=== PATIENT | female | born 1950 | race Caucasian/White ===

== ENCOUNTER → 2017-10-03 10:46 | Outpatient (CLI) | payer OTHER, SELFPAY ==
[2017-10-03 12:06] LABS: Absolute Lymphocyte Count 1.27 X10^3/ul (0.83-4.51); Absolute Neutrophil Count 2.9 X10^3/uL (2.0-7.7); Basophil# 0.02 X10^3/uL; Basophil% 0.4 % (0-1); Eosinophils% 5.8 % (0-5); Hematocrit 42.6 % (37-47); Hemoglobin 14.6 g/dl (12.0-15.0); Lymphocyte # 1.27 X10^3/ul (4.0); Lymphocyte % 24.5 % (19-41); Mean Corp Hgb Conc 34.3 g/gl (32-36); Mean Corpuscular Hgb 30.6 pg (27.0-32.0); Mean Corpuscular Volume 89.3 fL (81-99); Monocyte# 0.65 X10^3/uL; Monocyte% 12.5 % (0-10); Neutrophil # 2.93 X10^3/uL (2.7-7.7); Neutrophil % 56.6 % (47-70); Platelet Count 208 K/mm3 (150-450); RBC Distribution Width CV 13.8 % (11.6-14.6); RBC Distribution Width SD 44.9 fl (35.1-43.9); Red Blood Count 4.77 M/mm3 (4.2-5.4); White Blood Count 5.2 K/mm3 (4.4-11.0)
[2017-10-03 12:08] LABS: POSITIVE COUNT NO; POSITIVE DIFFERENTIAL NO; POSITIVE MORPHOLOGY NO
[2017-10-03 12:34] LABS: Anion Gap 6 (5-15); BUN 17 mg/dL (7-18); BUN/Creat Ratio 17.7 RATIO (10-20); Calcium,Total 9.1 mg/dL (8.5-10.1); Chloride 109 mmol/L (98-107); Creatinine, Serum 0.96 mg/dL (0.55-1.02); EST Glomerular Filtration Rate 61 mL/min (>60); Est Glom Filt Rate - Afr Amer 74 mL/min (>60); Glucose 99 mg/dL (74-106); Potassium 3.7 mmol/L (3.5-5.1); Sodium Level 142 mmol/L (136-145)
== END ==
PROVIDERS: Family Provider Family Medicine; PCP Family Medicine; Visit Provider Family Medicine
DX: I10 Essential (primary) hypertension (principal); E66.01 Morbid (severe) obesity due to excess calories
CPT/HCPCS: 36415; 80048; 84443; 85025

== ENCOUNTER → 2017-11-30 11:42 | Outpatient (CLI) | payer OTHER, SELFPAY ==
--- NOTE | 2017-11-30 11:44 | BI_ITS ---
MAMMOGRAPHY - BILATERAL SCREENING REASON FOR EXAM: Female, 67 years old. Routine annual screening examination. PERTINENT HISTORY: Non-contributory. TECHNIQUE: Digital bilateral breast hosea (3D mammographic acquisition) in the CC and MLO projections. 2-D mediolateral oblique (MLO) and craniocaudad (CC) views of both breasts were obtained. CAD: Full Field Digital Mammography with Computer Added Detection was performed. COMPARISON: Comparison is made with prior study dated November 25, 2016 and November 24, 2015. FINDINGS: Breast Composition: The breasts are almost entirely fatty. There are no dominant masses or suspicious calcifications. No other significant abnormalities are identified. There has been no significant change since the prior study. BI/SCREENING MAMM (CAD), BILAT IMPRESSION: Stable bilateral screening mammogram. Yearly follow-up mammogram recommended. (A) ASSESSMENT CATEGORY: BIRADS Category 1: Negative. A letter regarding these results will be sent to the patient by the facility within 30 days. Approximately 10% of breast cancers are not detected by mammography. A normal mammogram should not delay biopsy of a clinically suspicious abnormality. [id number] Electronically Signed: Bobby Thakkar MD at 14:38 EDT Tel [phone], Service support ,
== END ==
PROVIDERS: Family Provider Family Medicine; PCP Family Medicine; Visit Provider Family Medicine
DX: Z12.31 Encounter for screening mammogram for malignant neoplasm of breast (principal)
CPT/HCPCS: 77063; 77067

== ENCOUNTER → 2018-10-19 13:22 | Outpatient (CLI) | payer OTHER, SELFPAY | PROVIDERS: Family Provider Family Medicine; PCP Family Medicine; Visit Provider Family Medicine | DX: N39.0 Urinary tract infection, site not specified (principal) | CPT/HCPCS: 87086; 87088 ==

== ENCOUNTER → 2018-12-03 12:33 | Outpatient (CLI) | payer MEDICARE, SELFPAY ==
--- NOTE | 2018-12-03 12:35 | BI_ITS ---
MAMMOGRAPHY - BILATERAL SCREENING REASON FOR EXAM: Female, 68 years old. Routine annual screening examination. PERTINENT HISTORY: Non-contributory. TECHNIQUE: Digital bilateral breast justen (3D mammographic acquisition) in the CC and MLO projections. 2-D mediolateral oblique (MLO) and craniocaudad (CC) views of both breasts were obtained. CAD: Full Field Digital Mammography with Computer Added Detection was performed. COMPARISON: Comparison is made with prior study dated November 30, 2017 and November 25, 2016. FINDINGS: Breast Composition: The breasts are almost entirely fatty. There are no dominant masses or suspicious calcifications. No other significant abnormalities are identified. There has been no significant change since the prior study. BI/SCREEN MAMM (CAD) W/JUSTEN BILAT IMPRESSION: Stable bilateral screening mammogram. Yearly follow-up mammogram recommended. (A) ASSESSMENT CATEGORY: BIRADS Category 1: Negative. A letter regarding these results will be sent to the patient by the facility within 30 days. Approximately 10% of breast cancers are not detected by mammography. A normal mammogram should not delay biopsy of a clinically suspicious abnormality. [id number] Electronically Signed: Bobby Thakkar, at 14:32 EDT , Service support ,
== END ==
PROVIDERS: Family Provider Family Medicine; PCP Family Medicine; Referring Provider Family Medicine; Visit Provider Family Medicine
DX: Z12.31 Encounter for screening mammogram for malignant neoplasm of breast (principal)
CPT/HCPCS: 77063; 77067

== ENCOUNTER → 2019-08-27 10:12 | Outpatient (CLI) | payer MEDICARE, SELFPAY ==
[2019-08-27 12:20] LABS: Absolute Lymphocyte Count 1.15 X10^3/uL (0.83-4.51); Absolute Neutrophil Count 3.4 X10^3/uL (2.0-7.7); Basophil# 0.03 X10^3/uL; Basophil% 0.6 % (0-1); Eosinophil# 0.15 X10^3/uL; Eosinophils% 2.8 % (0-5); Hematocrit 43.6 % (37-47); Hemoglobin 14.2 g/dL (12.0-15.0); Lymphocyte # 1.15 X10^3/ul (4.0); Lymphocyte % 21.2 % (19-41); Mean Corp Hgb Conc 32.6 g/dL (32-36); Mean Corpuscular Hgb 29.5 pg (27.0-32.0); Mean Corpuscular Volume 90.5 fL (81-99); Mean Platelet Vol. 12.2 fl (6.2-12.0); Monocyte# 0.67 X10^3/uL; Monocyte% 12.4 % (0-10); NRBC Flagged by Analyzer 0 % (0-5); Neutrophil % 62.6 % (47-70); Platelet Count 266 K/mm3 (150-450); RBC Distribution Width CV 13.4 % (11.6-14.6); RBC Distribution Width SD 44.3 fl (35.1-43.9); Red Blood Count 4.82 M/mm3 (4.2-5.4); White Blood Count 5.4 K/mm3 (4.4-11.0)
[2019-08-27 12:46] LABS: Hemoglobin A1c 5.3 % (3.8-5.6)
[2019-08-27 12:59] LABS: Anion Gap 7 (5-15); BUN 19 mg/dL (7-18); BUN/Creat Ratio 20.8 RATIO (10-20); Calcium,Total 9.3 mg/dL (8.5-10.1); Chloride 107 mmol/L (98-107); Cholesterol 188 mg/dL (200); Creatinine, Serum 0.92 mg/dL (0.55-1.02); EST Glomerular Filtration Rate 64 mL/min (>60); Est Glom Filt Rate - Afr Amer 78 mL/min (>60); Glucose 100 mg/dL (74-106); High Density Lipoprotein 48 mg/dL; Potassium 3.7 mmol/L (3.5-5.1); Sodium Level 142 mmol/L (136-145); Triglycerides 102 mg/dL; Very Low Density Lipoprotein 20 mg/dL (5-40)
== END ==
PROVIDERS: PCP Family Medicine; Visit Provider Family Medicine
DX: E11.9 Type 2 diabetes mellitus without complications (principal); I10 Essential (primary) hypertension
CPT/HCPCS: 36415; 80048; 80061; 83036; 85025

== ENCOUNTER → 2019-12-05 10:40 | Outpatient (CLI) | payer MEDICARE, SELFPAY ==
--- NOTE | 2019-12-05 10:42 | BI_ITS ---
MAMMOGRAPHY - BILATERAL SCREENING REASON FOR EXAM: Female, 69 years old. Routine annual screening examination. PERTINENT HISTORY: Non-contributory. TECHNIQUE: Digital bilateral breast justen (3D mammographic acquisition) in the CC and MLO projections. 2-D mediolateral oblique (MLO) and craniocaudad (CC) views of both breasts were obtained. CAD: Full Field Digital Mammography with Computer Added Detection was performed. COMPARISON: Comparison is made with prior study 12/03/2018 and 11/30/2017. FINDINGS: Breast Composition: The breasts are almost entirely fatty. There are no dominant masses or suspicious calcifications. No other significant abnormalities are identified. There has been no significant change since the prior study. BI/SCREEN MAMM (CAD) W/JUSTEN BILAT IMPRESSION: Stable bilateral screening mammogram. Yearly follow-up mammogram recommended. (A) ASSESSMENT CATEGORY: BIRADS Category 1: Negative. A letter regarding these results will be sent to the patient by the facility within 30 days. Approximately 10% of breast cancers are not detected by mammography. A normal mammogram should not delay biopsy of a clinically suspicious abnormality. [id number] Electronically Signed: Bobby hTakkar, at 12:34 EDT , Service support ,
== END ==
PROVIDERS: PCP Family Medicine; Referring Provider Family Medicine; Visit Provider Family Medicine
DX: Z12.31 Encounter for screening mammogram for malignant neoplasm of breast (principal)
CPT/HCPCS: 77063; 77067

== ENCOUNTER → 2020-02-03 17:52 | Outpatient (CLI) | payer MEDICARE, SELFPAY | PROVIDERS: PCP Family Medicine; Referring Provider Family Medicine; Visit Provider Family Medicine | DX: Z03.818 Encounter for observation for suspected exposure to other biological agents ruled out (principal) | CPT/HCPCS: 87635; C9803; U0003 ==

== ENCOUNTER → 2020-03-16 14:45 | Outpatient (CLI) | payer MEDICARE, SELFPAY ==
[2020-03-16 17:33] LABS: Absolute Neutrophil Count 4.2 X10^3/uL (2.0-7.7); Basophil# 0.03 X10^3/uL; Basophil% 0.5 % (0-1); Eosinophil# 0.13 X10^3/uL; Eosinophils% 2.2 % (0-5); Hematocrit 40.6 % (37-47); Hemoglobin 13.6 g/dL (12.0-15.0); Lymphocyte % 15.2 % (19-41); Mean Corp Hgb Conc 33.5 g/dL (32-36); Mean Corpuscular Hgb 30.7 pg (27.0-32.0); Mean Corpuscular Volume 91.6 fL (81-99); Mean Platelet Vol. 11.9 fl (6.2-12.0); Monocyte# 0.69 X10^3/uL; Monocyte% 11.7 % (0-10); NRBC Flagged by Analyzer 0 % (0-5); Neutrophil # 4.15 X10^3/uL (2.7-7.7); Neutrophil % 70.2 % (47-70); Platelet Count 229 K/mm3 (150-450); RBC Distribution Width CV 14.3 % (11.6-14.6); RBC Distribution Width SD 46.5 fl (35.1-43.9); Red Blood Count 4.43 M/mm3 (4.2-5.4); White Blood Count 5.9 K/mm3 (4.4-11.0)
[2020-03-16 17:50] LABS: AST(SGOT) 22 U/L (15-37); Alanine Aminotransfer ALT/SGPT 39 U/L (13-56); Albumin, Serum 3.7 g/dL (3.2-5.0); Alkaline Phosphatase 103 U/L (45-117); Bilirubin, Direct 0.14 mg/dL (0.00-0.30); Lipase 49 U/L (73-393); Protein, Total 7.7 g/dL (6.4-8.2); Thyroid Stim Hormone (TSH) 2.91 uIU/mL (0.358-3.74)
[2020-03-18 16:08] LABS: Endomysial Antibody IgA Negative (Negative)
[2020-03-18 21:04] LABS: Immunoglobulin A 216 mg/dL (64-422); t-Transglutaminase IgA <2 U/mL (0-3)
== END ==
PROVIDERS: PCP Family Medicine; Visit Provider Family Medicine
DX: K52.9 Noninfective gastroenteritis and colitis, unspecified (principal); R63.4 Abnormal weight loss; R11.0 Nausea; R10.9 Unspecified abdominal pain
CPT/HCPCS: 36415; 80076; 82784; 83516; 83690; 84443; 85025; 86255

== ENCOUNTER → 2020-03-18 10:48 | Outpatient (CLI) | payer MEDICARE, SELFPAY ==
[2020-03-19 14:59] LABS: Giardia Lamblia, Stool EIA Negative (Negative)
== END ==
PROVIDERS: PCP Family Medicine; Visit Provider Family Medicine
DX: K52.9 Noninfective gastroenteritis and colitis, unspecified (principal); R63.4 Abnormal weight loss; R11.0 Nausea; R10.9 Unspecified abdominal pain; R19.7 Diarrhea, unspecified
CPT/HCPCS: 83630; 87329; 87493; 87506

== ENCOUNTER → 2020-06-23 13:51 | Outpatient (CLI) | payer MEDICARE, SELFPAY ==
[2020-06-23 14:17] LABS: Absolute Lymphocyte Count 1.01 X10^3/uL (0.83-4.51); Absolute Neutrophil Count 5.1 X10^3/uL (2.0-7.7); Basophil# 0.03 X10^3/uL; Basophil% 0.4 % (0-1); Eosinophil# 0.09 X10^3/uL; Eosinophils% 1.3 % (0-5); Hematocrit 42.8 % (37-47); Hemoglobin 13.5 g/dL (12.0-15.0); Lymphocyte # 1.01 X10^3/ul (4.0); Lymphocyte % 14.2 % (19-41); Mean Corp Hgb Conc 31.5 g/dL (32-36); Mean Corpuscular Hgb 28.3 pg (27.0-32.0); Mean Corpuscular Volume 89.7 fL (81-99); Mean Platelet Vol. 11.2 fl (6.2-12.0); Monocyte# 0.89 X10^3/uL; Monocyte% 12.5 % (0-10); NRBC Flagged by Analyzer 0 % (0-5); Neutrophil # 5.06 X10^3/uL (2.7-7.7); Neutrophil % 71.2 % (47-70); Platelet Count 327 K/mm3 (150-450); RBC Distribution Width CV 14.6 % (11.6-14.6); RBC Distribution Width SD 47.1 fl (35.1-43.9); Red Blood Count 4.77 M/mm3 (4.2-5.4); White Blood Count 7.1 K/mm3 (4.4-11.0)
[2020-06-23 14:54] LABS: ALB/GLOB Ratio 0.7 RATIO (0.9-2.4); AST(SGOT) 23 U/L (15-37); Alanine Aminotransfer ALT/SGPT 26 U/L (13-56); Albumin, Serum 3.1 g/dL (3.2-5.0); Alkaline Phosphatase 115 U/L (45-117); Anion Gap 5 (5-15); BUN 9 mg/dL (7-18); BUN/Creat Ratio 11.2 RATIO (10-20); Calcium,Total 9.1 mg/dL (8.5-10.1); Chloride 104 mmol/L (98-107); EST Glomerular Filtration Rate 75 mL/min (>60); Est Glom Filt Rate - Afr Amer 90 mL/min (>60); Ferritin 249 ng/mL (8-252); Globulin 4.3 g/dL (2.2-4.2); Glucose 115 mg/dL (74-106); Iron 36 ug/dL (50-170); Potassium 3.3 mmol/L (3.5-5.1); Protein, Total 7.4 g/dL (6.4-8.2); Sodium Level 139 mmol/L (136-145); Thyroid Stim Hormone (TSH) 2.78 uIU/mL (0.358-3.74)
== END ==
PROVIDERS: PCP Family Medicine; Visit Provider Family Medicine
DX: I10 Essential (primary) hypertension (principal); D64.9 Anemia, unspecified; K92.2 Gastrointestinal hemorrhage, unspecified
CPT/HCPCS: 36415; 80053; 82728; 83540; 84443; 85025

== ENCOUNTER → 2020-07-06 10:00 | Outpatient (CLI) | payer MEDICARE, SELFPAY ==
[2020-07-06 12:12] LABS: Anion Gap 8 (5-15); BUN 10 mg/dL (7-18); BUN/Creat Ratio 13.3 RATIO (10-20); Calcium,Total 9.3 mg/dL (8.5-10.1); Chloride 100 mmol/L (98-107); Creatinine, Serum 0.75 mg/dL (0.55-1.02); EST Glomerular Filtration Rate 80 mL/min (>60); Est Glom Filt Rate - Afr Amer 97 mL/min (>60); Glucose 115 mg/dL (74-106); Potassium 3.6 mmol/L (3.5-5.1); Sodium Level 137 mmol/L (136-145)
== END ==
PROVIDERS: PCP Family Medicine; Referring Provider Family Medicine; Visit Provider Family Medicine
DX: I10 Essential (primary) hypertension (principal)
CPT/HCPCS: 36415; 80048

== ENCOUNTER → 2020-08-06 10:39 | Outpatient (CLI) | payer MEDICARE, SELFPAY ==
[2020-08-06 11:08] LABS: Absolute Lymphocyte Count 0.56 X10^3/uL (0.83-4.51); Absolute Neutrophil Count 5.4 X10^3/uL (2.0-7.7); Basophil# 0.02 X10^3/uL; Basophil% 0.3 % (0-1); Eosinophil# 0.02 X10^3/uL; Eosinophils% 0.3 % (0-5); Hematocrit 37.1 % (37-47); Hemoglobin 11.8 g/dL (12.0-15.0); Lymphocyte # 0.56 X10^3/ul (0.83-4.51); Lymphocyte % 8.3 % (19-41); Mean Corp Hgb Conc 31.8 g/dL (32-36); Mean Corpuscular Hgb 27.8 pg (27.0-32.0); Mean Corpuscular Volume 87.3 fL (81-99); Mean Platelet Vol. 9.7 fl (6.2-12.0); Monocyte# 0.69 X10^3/uL; Monocyte% 10.3 % (0-10); NRBC Flagged by Analyzer 0 % (0-5); Neutrophil % 80.4 % (47-70); POSITIVE DIFFERENTIAL YES; Platelet Count 332 K/mm3 (150-450); RBC Distribution Width CV 14.7 % (11.6-14.6); RBC Distribution Width SD 46.6 fl (35.1-43.9); Red Blood Count 4.25 M/mm3 (4.2-5.4); White Blood Count 6.7 K/mm3 (4.4-11.0)
[2020-08-06 11:19] LABS: Differential Indicated SCAN CRITERIA MET
[2020-08-06 11:34] LABS: BNP,B-Type NATRIURETIC PEPTIDE 144.5 pg/mL (0-100)
[2020-08-06 11:50] LABS: ALB/GLOB Ratio 0.5 RATIO (0.9-2.4); AST(SGOT) 31 U/L (15-37); Alanine Aminotransfer ALT/SGPT 27 U/L (13-56); Albumin, Serum 2.4 g/dL (3.2-5.0); Alkaline Phosphatase 127 U/L (45-117); Anion Gap 7 (5-15); BUN 12 mg/dL (7-18); BUN/Creat Ratio 16.3 RATIO (10-20); Calcium,Total 8.5 mg/dL (8.5-10.1); Chloride 104 mmol/L (98-107); Creatinine, Serum 0.73 mg/dL (0.55-1.02); EST Glomerular Filtration Rate 83 mL/min (>60); Est Glom Filt Rate - Afr Amer 100 mL/min (>60); Globulin 4.4 g/dL (2.2-4.2); Glucose 113 mg/dL (74-106); Lipase 57 U/L (73-393); Potassium 3.3 mmol/L (3.5-5.1); Protein, Total 6.8 g/dL (6.4-8.2); Sodium Level 138 mmol/L (136-145); Thyroid Stim Hormone (TSH) 2.73 uIU/mL (0.358-3.74)
[2020-08-07 12:05] LABS: T4 Free Direct 1.35 ng/dL (0.76-1.46)
== END ==
PROVIDERS: PCP Family Medicine; Referring Provider Family Medicine; Visit Provider Family Medicine
DX: I10 Essential (primary) hypertension (principal); E11.9 Type 2 diabetes mellitus without complications; R60.9 Edema, unspecified; D64.9 Anemia, unspecified; R11.0 Nausea
CPT/HCPCS: 36415; 80053; 83690; 83880; 84439; 84443; 85025

== ENCOUNTER → 2020-08-20 09:24 | Outpatient (CLI) | payer MEDICARE, SELFPAY ==
--- NOTE | 2020-08-20 09:28 | US_ITS ---
STUDY: ABDOMINAL ULTRASOUND REASON FOR EXAM: Female, 70 years old. NAUSEA,ELEVATED LFTS,UNINTENDED WEIGHT LOSS,FH PANCREATIC CA TECHNIQUE: Transabdominal ultrasound was performed with real-time and static toscano scale imaging. TECHNICAL QUALITY: Limited. COMPARISON: Comparison is made with prior study dated 02/25/2014. FINDINGS: Liver: The liver measures 12 cm. There is a heterogeneous echogenicity of the liver. Irregular contour of the liver suggestive of cirrhosis. The bile ducts are within normal limits. There is hepatic color flow. The direction of portal flow is hepatopetal. There is no demonstrated mass lesion. Gallbladder: The patient is status post cholecystectomy. Common Bile Duct (C.B.D.): The common bile duct measures 5.1 mm. Pancreas: There is nonvisualization of the pancreas due to overlying bowel gas. Spleen: Normal size of the spleen. The spleen measures 12.2 cm x 5.87 x 4.8 cm. Right Kidney: Normal size of the right kidney. The right kidney measures 10.1 cm x 5.3 cm x 3.7 cm. Normal renal cortex. The right cortex measures 1.1 cm. There is no demonstrated renal mass or cyst. There is no right hydronephrosis. Left Kidney: Normal size of the left kidney. The left kidney measures 10.5 cm x 3.9 cm x 4.1 cm. Normal renal cortex. The left cortex measures 1.2 cm. There is no demonstrated renal mass or cyst. There is no left hydronephrosis. Aorta: Unremarkable I.V.C.: The IVC is patent. Small amount of free fluid is seen in the right and left upper quadrants. Incidental note is made of small bilateral pleural effusions. US/Abdomen Complete IMPRESSION: Heterogeneous appearance of the liver with nodular contour suggestive of cirrhotic change. Small amount of ascites seen in the right and left upper quadrants as well as small bilateral pleural effusions. Electronically Signed: Bobby Thakkar MD at 15:10 EDT , Service support ,
== END ==
PROVIDERS: PCP Family Medicine; Referring Provider Family Medicine; Visit Provider Family Medicine
DX: R11.0 Nausea (principal); R63.4 Abnormal weight loss; D64.9 Anemia, unspecified
CPT/HCPCS: 76700

== ENCOUNTER 2020-08-26 08:38 | Emergency (ER) | payer MEDICARE, SELFPAY ==
[2020-08-26 08:38] VITALS: BP 167/101; PULSE 118; RESP 18; TEMP 36.2; O2SAT 93; BMI 31.8
--- NOTE | 2020-08-26 09:02 | RAD_ITS ---
STUDY: X-RAY - LEFT TIBIA AND FIBULA REASON FOR EXAM: Female, 70 years old. Pain following a fall. TECHNIQUE: 2 view(s) of the tibia and fibula were obtained. COMPARISON: None. FINDINGS: Normal visualized tibia. Normal visualized fibula. The soft tissue structures are unremarkable. RAD/Tibia & Fibula 2 Views IMPRESSION: Normal x-ray examination of the tibia and fibula. Electronically Signed: Bobby Thakkar MD at 9:24 EDT , Service support ,
--- NOTE | 2020-08-26 09:02 | RAD_ITS ---
STUDY: X-RAY - LEFT KNEE REASON FOR EXAM: Female, 70 years old. Fall TECHNIQUE: 2 view(s) of the knee. COMPARISON: None. FINDINGS: Normal visualized distal femur. Normal visualized proximal tibia and fibula. Normal proximal tibiofibular articulation. There is mild degenerative arthrosis of the medial femorotibial compartment. There is severe degenerative arthrosis of the lateral femorotibial compartment with severe joint space narrowing. There is severe degenerative arthrosis of the patellofemoral articulation. Periarticular soft tissue ossification. 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 RAD/Knee 1 or 2 Views IMPRESSION: Degenerative arthrosis. No fracture is seen. Findings suggestive of synovial osteochondromatosis. Electronically Signed: Bobby Thakkar MD at 9:25 EDT , Service support ,
--- NOTE | 2020-08-26 09:03 | EDS_ITS ---
HPI HPI - Fall History of Present Illness Chief Complaint: Fall Informant: patient Occured/Mechanism Occurred: Today Pain/Injury Pain Location: lower extremity Quality of Pain: Sharp Current Severity: Mild Maximum Severity: Mild Narrative Narrative: 70-year-old female lives alone in a trailer. Past medical history of arthritis. No recent illness or hospitalization. Patient states that she was getting out of bed this morning she uses a walker basically got tangled up in her walker fell twisting and injuring her left knee and lower leg. She denies any LOC. Said she called for help but did not get any event she got to her phone and her neighbor came her helped her. She said she sat there for about an hour to 2 hours. She denies any other injuries or recent illnesses. Prior similar symptoms: No Recent Illness/Hospitalization: No PFSH PFSH Medical History Arthritis Hypertension Home Medications atenolol 25 mg PO DAILY 02/25/14 [History Last Taken 03/04/14 07:45] meloxicam 15 mg PO DAILY 08/26/20 [History Last Taken Unknown] Allergy/AdvReac Type Severity Reaction Status Date / Time No Known Allergies Allergy Verified 08/26/20 08:41 Surgical History History of cholecystectomy Social History Smoking Status: Never smoker ROS ROS ED ROS Narrative Patient denies any recent illness nor any recent hospitalization. Review of Systems ROS Unobtainable: Denies due to encephalopathy Constitutional Constitutional ED: Denies chills or fever(s) Eyes Eyes: Denies change in vision ENT ENT ED: Denies ear pain or sore throat Cardiovascular Cardiovascular: Denies chest pain Respiratory/Chest Respiratory/Chest: Denies cough or dyspnea Gastrointestinal Gastrointestinal: Denies abdominal pain, diarrhea, nausea or vomiting Genitourinary Genitourinary ED: Denies dysuria or hematuria Musculoskeletal Musculoskeletal: Denies myalgias Integumentary Denies rash Neurologic Neurologic: Denies headache(s) Psychiatric Psychiatric: Denies depression Endocrine Endocrinology: Denies polyuria Hematologic/Lymphatic Hematologic/Lymphatic: Denies easy bruising Allergic/Immunologic Allergic/Immunologic ED: Denies urticaria EXAM Physical Exam Narrative Exam Narrative: Older female no acute distress. Vital signs stable and afebrile. Does not look septic or toxic. Lungs are clear. Heart regular rhyth m. Abdomen soft nontender. Her left knee and left lower leg she has tenderness to the knee and abrasion to the left lower calf. There is no gross bony deformity. There is mild swelling of the knee. She is able to do flexion extension of both hips knees ankles and feet. Neurologically she is awake and alert. Const Vital Signs: 08/26/20 08:38 Temperature 97.2 F L Temperature Source Temporal Pulse Rate 118 H Respiratory Rate 18 Blood Pressure 167/101 H Blood Pressure Mean 123 Pulse Ox 93 Oxygen Delivery Method Room Air HEENT Reports normocephalic atraumatic; Negative for trauma or tenderness Eyes PERRL and EOMs intact bilaterally Neck full ROM, no lymphadenopathy and supple General: Negative for tenderness Chest Wall inspection of chest normal and palpation of chest normal Resp normal respiratory effort, no retractions and clear to auscultation bilaterally Auscultation: Negative for rales, rhonchi or wheezes Cardio regular rate, regular rhythm and no murmurs Rate: Negative for bradycardia or tachycardic GI non-tender, non-distended and no masses Inspection: Negative for abdominal distention Auscultation: normoactive bowel sounds Palpation: soft; Negative for guarding or rebound tenderness present Back/Spine no CVA tenderness Cervical Spine: Negative for cervical spine tenderness Thoracic Spine / Upper Back: Negative for thoracic spinal tenderness Lumbar Spine / Lower Back: Negative for paraspinal muscle tenderness Extremity normal to inspection and full ROM Extremity Narrative: Mild tenderness to her left knee mild swelling. Flexion extension intact. Abrasion to the left calf. No gross bony deformities. Both lower extremities are neurovascular intact. Upper extremities are nontender with normal range of motion. Neuro oriented x3, CN's II-XII intact bilaterally, moves all extremities and no focal motor deficits Sensorium / Orientation: alert, oriented to person, oriented to place and oriented to time; Negative for confused, lethargic or stuporous Psych mental status grossly normal Skin Lesions: no lesions Rashes: no rashes MDM MDM MDM Narrative Medical decision making narrative: Older female today had trouble getting out of bed and fell injuring her left knee and lower leg. X-rays are being obtained. Currently she did not want anything for pain. We will also test her ambulation. Repeat exam the patient is doing well at 9:27 AM. She and I went over her x- rays. Nurses agreed to try to ambulate her with a walker she does well she will be discharged to home. She also wants to talk to a geriatric social work professor about some home health care. Radiography Diagnostic Testing: X-ray of the left tib-fib shows no acute abnormality. Chronic degenerative changes left knee. No fracture or dislocation is noted. 2 views read by myself. Left knee x-ray multiple views shows chronic degenerative arthritis. Decreased joint space narrowing of the knee. But no acute fracture or dislocation. Significant arthritis. Interpreted by myself. Discharge Plan Triage Chief Complaint: Fall ED Provider: Johnnei Thayer Dx/Rx/DC Orders Clinical Impression: Fall, Left knee sprain, Osteoarthritis, Abrasion of anterior left lower leg Instructions: ED Knee Sprain, ED Osteoarthritis Prescriptions: No Action atenolol 25 MG tablet 25 mg PO DAILY RF: 0 meloxicam 15 mg Tablet 15 mg PO DAILY RF: 0 Primary Care Provider: Tiago Alonzo Referrals: Tiago Alonzo MD [Primary Care Provider] - 3-5 Days if not improving Activity Restrictions/Additional Instructions: Ice and elevate your left knee to decrease pain and swelling. Usual arthritis pain medication at home as needed. Follow-up with your doctor if not improving. Consider discussing with your doctor and orthopedic surgeon a left knee replacement. Disposition Disposition: Home, self care
--- NOTE | 2020-08-26 10:40 | CM.ED ---
SOCIAL WORK Referral Source: Dr. Thayer Reason for Consult: Resources Met with patient and patient's neighbor/friend Naomy Escobar ([phone]) in room. Introduced role and reason for referral. Patient from home alone and presents to ER after a fall. Patient reports laid on the floor for 2 hours before she was able to get help. Patient lives in a mobile home with ramp to enter. Patient utilizes a walker for assistance with ambulation. Patient and friend report over the last few months patient has been declining. Patient states has been in contact with her insurance and is provided something like companionship 1x week. Patient believes she would benefit from additional services. Discussed with Dr. Thayer who is recommending home health. Reviewed list of providers with patient and friend. Patient requesting referral to [facility] as first choice and [facility] as second choice. Call to [facility], left message for Leda with intake. Awaiting call back at this time. Plan: Home with referral for home health Susana Benítez, MACHINE OPERATIONS SUPERVISOR, VEGETABLE TIER
[2020-08-26 10:56] VITALS: BP 151/98; PULSE 120; RESP 16; O2SAT 99
--- NOTE | 2020-08-26 12:35 | CM.ED ---
SOCIAL WORK Received call from Leda with [facility] Home [facility]. Leda reports able to accept patient for home health services. Susana Benítez, FLIGHT TECHNICIAN, RDA
== END 2020-08-26 10:57 | disposition home or self-care (01) ==
LOC: ED 09:32
PROVIDERS: Emergency Provider Emergency Medicine; PCP Family Medicine
DX: S83.92XA Sprain of unspecified site of left knee, initial encounter (principal); S80.812A Abrasion, left lower leg, initial encounter; W06.XXXA Fall from bed, initial encounter; Y93.9 Activity, unspecified; Y92.003 Bedroom of unspecified non-institutional (private) residence as the place of occurrence of the external cause; Y99.9 Unspecified external cause status; I10 Essential (primary) hypertension; M17.12 Unilateral primary osteoarthritis, left knee; Z79.1 Long term (current) use of non-steroidal anti-inflammatories (NSAID)
CPT/HCPCS: 73560; 73590; 99284

== ENCOUNTER 2020-08-29 10:42 | Inpatient (IN) | payer MEDICARE, SELFPAY ==
[2020-08-29] VITALS (12 sets, daily range): BP systolic 121–147; BP diastolic 81–98; PULSE 91–110; RESP 14–24; TEMP 36.4–37; O2SAT 89–98; BMI 25.7; BMI 30.6
--- NOTE | 2020-08-29 10:48 | RAD_ITS ---
HISTORY: chest pain. TECHNIQUE: XR Chest 1 View. # of images incl. paperwork: 1. COMPARISON: None. FINDINGS: CARDIOMEDIASTINAL STRUCTURES: Cardiac silhouette and mediastinal contour obscured. LUNGS: Opacities in the left mid to lower lung. PLEURA: Moderate left pleural effusion. OSSEOUS STRUCTURES: Calcific tendinitis of the right shoulder. RAD/Chest 1 View (Portable) IMPRESSION: Moderate left pleural effusion with atelectasis or consolidation in the left lung base. Recommend follow-up to resolution. at 1153 Reported and signed by: Bhavani Rod MD Electronically Signed: Bhavani Rod MD at 11:52 EDT Tel , Service support ,
--- NOTE | 2020-08-29 10:48 | EKG12_ITS ---
Test Reason : PALPS Blood Pressure : / mmHG Vent. Rate : 108 BPM Atrial Rate : 108 BPM P-R Int : 130 ms QRS Dur : 086 ms QT Int : 340 ms P-R-T Axes : 014 -66 030 degrees QTc Int : 455 ms Sinus tachycardia Possible Left atrial enlargement Left anterior fascicular block Anterolateral infarct , age undetermined Abnormal ECG Confirmed by SHELLEY CHAMBERS, NICOLÁS ([id number]), film editor supervisor MEREDITH ALBERT ([id number]) on 08/31/2020 10:38:56 A M Referred By: JÚNIOR Confirmed By:RICO ROSA MD
--- NOTE | 2020-08-29 11:13 | EDS_ITS ---
HPI History of Present Illness Chief Complaint: Palpitations Narrative Narrative: Concern for A. fib sent in by visiting nurse, the patient reports she basically has a visiting nurse related to frequent falls and lower extremity contusions she indicates she is doing well at home she is able to get up use her walker she is had no recent falls, she denies head neck chest or abdominal pain she denies palpitations, she reports that the visiting nurse thought she might have A. fib she called paramedics on arrival of EMS she was in a sinus rhythm she was brought to the hospital, the patient has no history of A. fib or dysrhythmia she assures me she is doing fine she is able to do most of her daily activities she needs help with meal preparation [facility] Medical History Arthritis Hypertension Home Medications atenolol 25 mg PO DAILY 02/25/14 [History Last Taken 03/04/14 07:45] meloxicam 15 mg PO DAILY 08/26/20 [History Last Taken Unknown] Allergy/AdvReac Type Severity Reaction Status Date / Time No Known Allergies Allergy Verified 08/29/20 10:45 Surgical History History of cholecystectomy Social History Smoking Status: Never smoker ROS ROS ED ROS Narrative Patient has no complaints Constitutional Constitutional ED: Reports subjective, sweats and other; Denies chills, fever(s) or weight loss Eyes Eyes: Denies blurry vision or change in vision ENT ENT ED: Denies ear pain Cardiovascular Cardiovascular: Denies chest pain or palpitations Respiratory/Chest Respiratory/Chest: Denies dyspnea Gastrointestinal Gastrointestinal: Denies abdominal pain, nausea or vomiting Genitourinary Genitourinary ED: Denies dysuria or hematuria Musculoskeletal Musculoskeletal: Denies arthralgias or myalgias Integumentary Reports rash; Denies abscess Neurologic Neurologic: Denies weakness Psychiatric Psychiatric: Denies anxiety or depression Endocrine Endocrinology: Denies polydipsia or polyuria Allergic/Immunologic Allergic/Immunologic ED: Denies urticaria EXAM Physical Exam Narrative Exam Narrative: Her vital signs are unremarkable she has a heart rate of 105 si nus rhythm she is awake and alert she has contusions to the lower extremities that are bluish and otherwise discolored no recent contusions she is quite a bit of edema she indicates basically her lower extremities are at baseline nothing is new or different she is able to move all 4 extremities her NIH is 0 she is awake alert answering questions and assures me she is at her baseline has no complaints Const Vital Signs: 08/29/20 10:43 Temperature 97.5 F L Temperature Source Temporal Pulse Rate 110 H Respiratory Rate 18 Blood Pressure 147/83 H Blood Pressure Mean 104 Pulse Ox 91 Oxygen Delivery Method Room Air Positive well developed General Appearance ED: well developed HEENT Reports normocephalic Negative for trauma Eyes EOMs intact bilaterally Neck supple Chest Wall inspection of chest normal Resp normal respiratory effort Cardio regular rate GI non-tender and non-distended Back/Spine Back/Spine Narrative: unremarkable Extremity General Extremety ED: Yes edema and tenderness General Extremity: edema Neuro oriented x3 and CN's II-XII intact bilaterally Sensorium / Orientation: alert Psych mental status grossly normal Skin no rashes or lesions noted MDM MDM MDM Narrative Medical decision making narrative: At this time given all the above ED screen evaluation be pursued the patient has EKG sinus rhythm 108 nonspecific changes nothing acute her vital signs are unremarkable she assures me she feels fine she wants to go home she came to the hospital only because the nurse called the paramedics she assures me she does not have any history of A. fib and she otherwise been doing well at home she does admit to having falls that have necessitated the visiting nurse to come check on her she has family that helps to help her with daily activities and meal preparation ED screening labs 1 view chest x-ray to my review Patient would like to be discharged home to continue her therapy Home stable Final impression palpitations Discharge Plan Triage Chief Complaint: Palpitations ED Provider: Hector Mcnamara Dx/Rx/DC Orders Prescriptions: No Action atenolol 25 MG tablet 25 mg PO DAILY RF: 0 meloxicam 15 mg Tablet 15 mg PO DAILY RF: 0 Primary Care Provider: Tiago Alonzo
[2020-08-29 12:06] LABS: Absolute Neutrophil Count 5.1 X10^3/uL (2.0-7.7); Basophil# 0.01 X10^3/uL; Basophil% 0.2 % (0-1); Eosinophil# 0.01 X10^3/uL; Eosinophils% 0.2 % (0-5); Hematocrit 37.7 % (37-47); Hemoglobin 11.6 g/dL (12.0-15.0); Lymphocyte % 7.9 % (19-41); Mean Corp Hgb Conc 30.8 g/dL (32-36); Mean Corpuscular Hgb 27.4 pg (27.0-32.0); Mean Corpuscular Volume 88.9 fL (81-99); Mean Platelet Vol. 10.8 fl (6.2-12.0); Monocyte# 0.66 X10^3/uL; Monocyte% 10.5 % (0-10); NRBC Flagged by Analyzer 0 % (0-5); Neutrophil # 5.05 X10^3/uL (2.7-7.7); Neutrophil % 80.2 % (47-70); POSITIVE DIFFERENTIAL YES; Platelet Count 242 K/mm3 (150-450); RBC Distribution Width SD 51.3 fl (35.1-43.9); Red Blood Count 4.24 M/mm3 (4.2-5.4); White Blood Count 6.3 K/mm3 (4.4-11.0)
[2020-08-29 12:09] LABS: Differential Indicated SCAN CRITERIA MET
[2020-08-29 12:24] LABS: Anion Gap 10 (5-15); BUN 18 mg/dL (7-18); Calcium,Total 8.4 mg/dL (8.5-10.1); Chloride 101 mmol/L (98-107); Creatinine, Serum 0.69 mg/dL (0.55-1.02); EST Glomerular Filtration Rate 88 mL/min (>60); Est Glom Filt Rate - Afr Amer 107 mL/min (>60); Estimated Creatinine Clearance 40.22 ml/min; Glucose 91 mg/dL (74-106); Potassium 2.9 mmol/L (3.5-5.1); Sodium Level 142 mmol/L (136-145)
[2020-08-29 12:29] LABS: Differential Comment SCANNED
[2020-08-29] MEDS: Aspirin 81 MG TAB.CHEW 324 MG PO (12:44)
--- NOTE | 2020-08-29 13:11 | HP.PCM.HOS_ITS ---
HPI - General General Date of Admission: 08/29/20 HPI Narrative CHESTER BROOKS, is a 70 F with an extensive PMH as outlined who was admitted via the ED on 08/29/2020 with a complaint of palpitations. Her visitinig nurse checked on her today, and she was found to be in afib. She also had lower extremity swelling and had been having mechanical falls, with bruises on her lower extremities. In [facility] ED, she was found to be in sinus rhythm. CXR on admission showed a large left pleural effusion. She has no known history of any lung or cardiac pathology. She last had a mammogram a year ago and was all normal. She last had a colonoscopy about 10 years ago and states she does not want to have another one. She also admits to unintentional weight loss of about 50 pounds over the past 4 months. She denies any history of smoking and says she last smoked about 50 years ago. EKG on admission showed HR of 105, and vitals showed temperature of 97.5F, with NV of 110, RR of 18 and BP of 147/83. She was saturating at 91% on room air. CBC showed hemoglobin of 11.6 with WBC of 6.3 and platelets of 242. Chemistry showed sodium of 142 with potassium of 2.9 and creatinine of 0.69. Bicarb was 31. Initial troponin was 0.108. She has been admitted to be managed for elevated troponin and left-sided pleural effusion of unclear etiology. [facility] Medical History Arthritis Hypertension Home Medications meloxicam 15 mg PO DAILY 08/26/20 [History Last Taken Unknown] multivitamin 1 tab PO DAILY 08/29/20 [History Last Taken Unknown] Allergy/AdvReac Type Severity Reaction Status Date / Time No Known Allergies Allergy Verified 08/29/20 10:45 Surgical History History of cholecystectomy Social History Smoking Status: Never smoker ROS Constitutional Constitutional: Reports malaise; Denies anorexia, change in weight, chills, fatigue, fever(s) or weakness Eyes Eyes: Denies discharge from eye(s) or double vision ENT HEENT: Denies dysphagia, headache(s) or nasal congestion Cardiovascular Cardiovascular: Reports edema; Denies chest pain, dyspnea on exertion, lightheadedness, orthopnea, palpitations, paroxysmal nocturnal dyspnea or rapid heart rate Respiratory/Chest Respiratory/Chest: Denies cough, dyspnea, productive cough, shortness of breath at rest or shortness of breath with exertion Gastrointestinal Gastrointestinal: Denies abdominal pain, diarrhea, nausea or vomiting Genitourinary Genitourinary: Denies burning urination or urinary frequency Musculoskeletal Musculoskeletal: Denies arthralgias, back pain or joint stiffness Neurologic Neurologic: Denies confusion, dizziness, focal weakness, numbness, seizures or syncope Psychiatric Psychiatric: Denies anxiety Endocrine Endocrinology: Denies change in body appearance Hematologic/Lymphatic Hematologic/Lymphatic: Denies anemia Vital Signs Vital Signs Vital Signs: 08/29/20 10:43 08/29/20 11:53 08/29/20 11:55 Temperature 97.5 F L Temperature Source Temporal Pulse Rate 110 H 100 Respiratory Rate 18 20 H Respiratory Effort Normal Non-Labored Respiratory Pattern Normal Blood Pressure 147/83 H 137/87 H Blood Pressure Mean 104 103 Pulse Ox 91 95 95 Oxygen Delivery Method Room Air Room Air Room Air Weight Weight: 141 lb Body Mass Index (BMI) 25.7 Physical Exam Const alert, oriented x3 and no apparent distress General Appearance: cooperative HEENT normocephalic, head/scalp atraumatic, hearing grossly normal bilaterally and moist oral mucous membranes Eyes EOMs intact bilaterally and conjunctivae normal Neck no lymphadenopathy, supple, no JVD and no carotid bruits Resp Resp Narrative: markedly diminished breath sounds bibasally, and in the right lung elkins. Cardio regular rhythm, S1 normal heart sound, S2 normal heart sound and no murmurs Cardio Narrative: tachycardic GI normal to inspection, nondistended, normoactive bowel sounds, soft to palpation, non-tender and non-distended Extremity normal to inspection, full ROM and no clubbing, cyanosis or edema Peripheral Pulses: Yes pulses 2+ throughout Skin no rashes or lesions noted Neuro oriented x3 Sensorium / Orientation: awake and alert Psych affect normal Results Lab / Micro Data Result Diagrams: 08/29/20 11:58 08/29/20 11:58 Labs: Laboratory Results - last 24 hr 08/29/20 08/29/20 11:58 11:58 WBC 6.3 RBC 4.24 Hgb 11.6 L Hct 37.7 MCV 88.9 MCH 27.4 MCHC 30.8 L RDW Std Deviation 51.3 H RDW Coeff of Katie 16.0 H Plt Count 242 MPV 10.8 Immature Gran % (Auto) 1.000 H Neut % (Auto) 80.2 H Lymph % (Auto) 7.9 L [place] % (Auto) 10.5 H Eos % (Auto) 0.2 Baso % (Auto) 0.2 Absolute Neuts (auto) 5.1 Absolute Lymphs (auto) 0.50 L Nucleated RBC % 0 Differential Comment SCANNED Sodium 142 Potassium 2.9 L Chloride 101 Carbon Dioxide 31.0 Anion Gap 10 BUN 18 Creatinine 0.69 Estim Creat Clear Calc 40.22 Est GFR (MDRD) Af Amer 107 Est GFR (MDRD) Non-Af 88 BUN/Creatinine Ratio 26.0 H Glucose 91 Calcium 8.4 L Troponin I 0.108 H Radiology Impression Chest X-Ray 08/29/20 10:48 IMPRESSION: Moderate left pleural effusion with atelectasis or consolidation in the left lung base. Recommend follow-up to resolution. at 1153 Reported and signed by: Bhavani Rod MD Electronically Signed: Bhavani Rod MD at 11:52 EDT Tel , Service support , Assessment & Plan Assessment/Plan (1) Pleural effusion: PLAN: # Left pleural effusion * etiology is unclear. Differentials include a lung malignancy vs effusion due to liver disease, as niece said patient had been recently told that she had cirrhosis. Ultrasound done by her PCP. * Consult pulmonology. For thoracentesis on Monday and will send fluid for analysis to ascertain the cause of the liver disease. * Also do chest CT to better characterize lung * Breathing treatments of bronchodilators. Give oxygen as needed and titrate to maintain saturation above 90%. * Chest x-ray showed moderate left pleural effusion with atelectasis or consolidation in the left lung base. * #Elevated troponin: * Initial troponin 0 0.108. * EKG showed no acute ST changes and she denies any chest pain. * We will cycle troponins and consult cardiology. * Order 2D echo. * #Hypokalemia: Potassium is 2.9. Will replace aggressively. #SIRS criteria * Patient is tachypneic and tachycardic. WBC is not elevated. Chest x-ray does show some evidence of consolidation so she could have a pneumonia as well * . Will start on broad-spectrum antibiotics for now and get blood cultures. * #DVT prophylaxis: Lovenox CODE STATUS: Full code * Daughter and niece counseled about different types of CODE STATUS including full code, DNR CCA and DNR CCA. Patient elects to be full code. * Total [id number] time 16 minutes. Charges/Coding Visit Charges Inpatient E&M: 86501 Init Hosp L3 Procedures Hospitalists Procedures: 07233 Advncd Care Plan 30 Min
--- NOTE | 2020-08-29 14:16 | CT_ITS ---
ACR Level 3 findings have been noted. An addendum which confirms receipt of the report will follow. STUDY: CT CHEST WITH CONTRAST REASON FOR EXAM: Female, 70 years old. Left pleural effusion evaluation RADIATION DOSAGE (If Supplied By Facility): CTDIvol = ( 10.75 ) mGy, DLP = ( 268.67 ) mGycm TECHNIQUE: Transaxial imaging was performed following intravenous administration of IV 100mL Isovue-370. Individualized dose optimization techniques were used for this CT. COMPARISON: None. FINDINGS: Examination was not optimized for angiographic evaluation of the chest. However, there is mild to moderate extent acute pulmonary embolism bilaterally. Pulmonary arteries are moderately dilated. Right ventricle is normal. There are rounded and elongated soft tissue lesions adjacent to the heart in the right anterior mediastinum measuring 3 cm, 2.5 cm and posterior to the sternum at 1.5 cm. There is enlarged right internal mammary chain lymph node. Aorta is intact. There is a large left pleural effusion and left lower lobe collapse. There is mild pulmonary edema and minimal right pleural effusion. Left lower lobe is suboptimally evaluated and left pleural cavity are suboptimally evaluated. There is large ascites. Osseous structures are intact with multilevel disc ossification. CT/Chest WITH Contrast IMPRESSION: 1. Small to moderate acute pulmonary embolism. 2. Mild pulmonary arterial hypertension. 3. Large left effusion, left lower lobe collapse. 4. Anterior mediastinal masses, presumably metastases versus lymphadenopathy. Refer to abdominal imaging for detection of primary malignancy. Electronically Signed: Milla Pagan MD at 16:41 EDT Tel , Service support ,
[2020-08-29 17:01] LABS: BNP,B-Type NATRIURETIC PEPTIDE 78.2 pg/mL (0-100)
[2020-08-29] MEDS: Ceftriaxone 1 GM/50 ML BAG IV (17:04)
[2020-08-29] MEDS: 0.9% Saline Lock 10 ML Syringe IV ×2 (17:05→19:08)
--- NOTE | 2020-08-29 18:28 | NURSING ---
Phoned and spoke with patients niece and updated her on patient's condition.
[2020-08-29 19:04] LABS: International Normalized Ratio 1.3; Partial Thromboplast Time 26.8 Seconds (24.1-36.2); Prothrombin Time (Protime)PT. 15.5 SECONDS (11.7-14.9)
[2020-08-29] MEDS: HEPARIN/D5w 25,000 UNITS 25,000 UNITS/250 ML IV.SOLN. 11 UNITS IV (19:05)
[2020-08-29] MEDS: Heparin Injection (Vial) 5,000 UNIT/ML VIAL 5000 UNIT IV (19:09)
[2020-08-29] MEDS: Potassium Chloride 10mEq/100mL 10 MEQ/100 ML IV.SOLN. 100 MEQ IV BOLUS ×4 (20:03→23:16)
[2020-08-29] MEDS: Furosemide 40 MG/4 ML Vial IV (20:03)
[2020-08-30] VITALS (11 sets, daily range): BP systolic 113–131; BP diastolic 68–88; PULSE 93–117; RESP 12–20; TEMP 36.3–36.9; O2SAT 94–97
[2020-08-30 01:42] LABS: Partial Thromboplast Time 149.1 Seconds (24.1-36.2)
--- NOTE | 2020-08-30 05:47 | EX.PCM.CONCC ---
Assessment & Plan Assessment/Plan (1) Pleural effusion: PLAN: RECOMMENDATIONS: 1. Continue empiric antimicrobials pending infectious work-up. 2. Continue diuretic therapy as tolerated by hemodynamics and renal function. 3. Obtain echocardiogram. 4. Perform ultrasound-guided thoracentesis tomorrow. 5. Send pleural fluid studies as noted below. 6. Wean supplemental oxygen to maintain saturations at or above 90%. 7. Encourage incentive spirometer use and mobilize patient as tolerated. IMPRESSIONS: 1. Acute hypoxemic respiratory insufficiency likely secondary to large left pleural effusion Potential etiologies include underlying liver disease, i.e. cirrhosis, infection, CHF or malignancy. It is reasonable to continue empiric antimicrobials for now. Echocardiogram is still pending. Given the undifferentiated nature of the effusion and unintentional weight loss, I would recommend that an ultrasound-guided thoracentesis to be performed. Pleural fluid studies including LDH, total protein, cell count, cultures, cytology and flow cytometry should be sent. In the interim, wean supplemental oxygen to maintain saturations at or above 90%. Encourage incentive spirometer use and mobilize patient as tolerated. 2. Hypokalemia/hypomagnesemia Additional electrolyte repletion. Recheck levels in the morning. 3. Anemia/unintentional weight loss/troponin elevation Complicates care, management, recovery and prognosis. Await results of echocardiogram. This note was generated with [employer] dictation software. It may contain incorrect words, spelling, and punctuation that were not noted in checking the note before signing. HPI Consult Data Date of Consult: 08/30/20 HPI Narrative Reason for Consultation: Pleural effusion HPI Narrative: The patient is a 70-year-old female, with a history as outlined below, who presented to the emergency department on August 29 with palpitations. The patient's visiting nurses service was concerned that the patient may have atrial fibrillation and subsequently referred her to the emergency department for evaluation. The patient has a limited smoking history, having quit completely 50 years ago. She has never been diagnosed with COPD. She does report unintentional weight loss over the past 6 months. On presentation to the emergency department, the patient was noted to be afebrile and hemodynamically stable. She was initially maintaining appropriate oxygen saturations in the low 90s on room air. Initial laboratory evaluation revealed a normal white blood cell count. Coagulation profile revealed an INR of 1.3. Chemistry profile was notable for a sodium of 142, potassium of 2.9 and creatinine of 0.69. Troponin was mildly elevated to 0.108. BNP was within normal limits. CT chest with contrast was obtained and revealed bilateral PE along with a left pleural effusion and associated compressive atelectasis. A large amount of ascites was noted. Incidental note was made of an anterior mediastinal mass concerning for possible metastatic disease versus lymphadenopathy. Of note, the patient did have an abdominal ultrasound completed on August 20 which revealed irregular contour of the liver suggestive of cirrhosis. [facility] Medical History Arthritis Hypertension Home Medications meloxicam 15 mg PO DAILY 08/26/20 [History Last Taken 08/29/20] multivitamin 1 tab PO DAILY 08/29/20 [History Last Taken Unknown] Allergy/AdvReac Type Severity Reaction Status Date / Time No Known Allergies Allergy Verified 08/29/20 10:45 Surgical History History of cholecystectomy Social History Smoking Status: Former smoker ROS Constitutional Constitutional: Denies chills, fatigue or fever(s) Eyes Eyes: Denies blurry vision or change in vision ENT HEENT: Denies dizziness or headache(s) Cardiovascular Cardiovascular: Reports dyspnea; Denies chest pain or dizziness Respiratory/Chest Respiratory/Chest: Reports dyspnea and shortness of breath with exertion; Denies chest tightness, cough or hemoptysis Gastrointestinal Gastrointestinal: Denies abdominal pain, diarrhea, nausea or vomiting Genitourinary Genitourinary: Denies difficulty urinating or dysuria Musculoskeletal Musculoskeletal: Denies arthralgias or back pain Integumentary Integumentary: Denies lesions, rash or skin ulcer Neurologic Neurologic: Denies abnormal gait, abnormal speech or confusion Psychiatric Psychiatric: Denies anxiety or depression Endocrine Endocrinology: Denies fatigue or polydipsia Hematologic/Lymphatic Hematologic/Lymphatic: Denies easy bleeding or easy bruising Physical Exam Const alert, oriented x3 and no apparent distress Constitutional Narrative: Sitting in bedside recliner. General Appearance: cooperative HEENT normocephalic, head/scalp atraumatic and moist oral mucous membranes Eyes PERRL, EOMs intact bilaterally and conjunctivae normal Neck supple General: trachea midline Resp normal respiratory effort Resp Narrative: Dullness to percussion of the left lung base Effort and Inspection: able to speak in complete sentences Auscultation: rales localized (Right lower lobe) and diminished lung sounds Cardio regular rate and regular rhythm GI normal to inspection, nondistended, normoactive bowel sounds Extremity no clubbing, cyanosis or edema Skin no rashes or lesions noted Neuro CN's II-XII intact bilaterally, moves all extremities and no focal motor deficits Psych cooperative and affect normal Lab / Micro Data Result Diagrams: 08/30/20 06:48 08/30/20 06:48 Labs: Laboratory Results - last 24 hr 08/29/20 08/29/20 08/29/20 11:58 11:58 11:58 WBC 6.3 RBC 4.24 Hgb 11.6 L Hct 37.7 MCV 88.9 MCH 27.4 MCHC 30.8 L RDW Std Deviation 51.3 H RDW Coeff of Katie 16.0 H Plt Count 242 MPV 10.8 Immature Gran % (Auto) 1.000 H Neut % (Auto) 80.2 H Lymph % (Auto) 7.9 L [place]corn % (Auto) 10.5 H Eos % (Auto) 0.2 Baso % (Auto) 0.2 Absolute Neuts (auto) 5.1 Absolute Lymphs (auto) 0.50 L Nucleated RBC % 0 Differential Comment SCANNED PT INR APTT Sodium 142 Potassium 2.9 L Chloride 101 Carbon Dioxide 31.0 Anion Gap 10 BUN 18 Creatinine 0.69 Estim Creat Clear Calc 40.22 Est GFR (MDRD) Af Amer 107 Est GFR (MDRD) Non-Af 88 BUN/Creatinine Ratio 26.0 H Glucose 91 Calcium 8.4 L Troponin I 0.108 H B-Natriuretic Peptide 78.2 08/29/20 08/29/20 08/29/20 15:35 18:40 18:40 WBC RBC Hgb Hct MCV MCH MCHC RDW Std Deviation RDW Coeff of Katie Plt Count MPV Immature Gran % (Auto) Neut % (Auto) Lymph % (Auto) Alcorn % (Auto) Eos % (Auto) Baso % (Auto) Absolute Neuts (auto) Absolute Lymphs (auto) Nucleated RBC % Differential Comment PT 15.5 H INR 1.3 APTT 26.8 Sodium Potassium Chloride Carbon Dioxide Anion Gap BUN Creatinine Estim Creat Clear Calc Est GFR (MDRD) Af Amer Est GFR (MDRD) Non-Af BUN/Creatinine Ratio Glucose Calcium Troponin I 0.129 H 0.137 H B-Natriuretic Peptide 08/30/20 01:06 WBC RBC Hgb Hct MCV MCH MCHC RDW Std Deviation RDW Coeff of Katie Plt Count MPV Immature Gran % (Auto) Neut % (Auto) Lymph % (Auto) Alcorn % (Auto) Eos % (Auto) Baso % (Auto) Absolute Neuts (auto) Absolute Lymphs (auto) Nucleated RBC % Differential Comment PT INR APTT 149.1 H* Sodium Potassium Chloride Carbon Dioxide Anion Gap BUN Creatinine Estim Creat Clear Calc Est GFR (MDRD) Af Amer Est GFR (MDRD) Non-Af BUN/Creatinine Ratio Glucose Calcium Troponin I B-Natriuretic Peptide Micro: Microbiology 08/29/20 13:25 SARS-CoV-2 Antigen (Rapid) - Final Mucosa - Nose Radiology Impression Chest X-Ray 08/29/20 10:48 IMPRESSION: Moderate left pleural effusion with atelectasis or consolidation in the left lung base. Recommend follow-up to resolution. at 1153 Reported and signed by: Bhavani Rod MD Electronically Signed: Bhavani Rod MD at 11:52 EDT Tel , Service support , Chest CT 08/29/20 14:16 IMPRESSION: 1. Small to moderate acute pulmonary embolism. 2. Mild pulmonary arterial hypertension. 3. Large left effusion, left lower lobe collapse. 4. Anterior mediastinal masses, presumably metastases versus lymphadenopathy. Refer to abdominal imaging for detection of primary malignancy. Electronically Signed: Milla Pagan MD at 16:41 EDT Tel , Service support , ADDENDUM: 08/29/20 1705 IMPRESSION: 1. Small to moderate acute pulmonary embolism. 2. Mild pulmonary arterial hypertension. 3. Large left effusion, left lower lobe collapse. 4. Anterior mediastinal masses, presumably metastases versus lymphadenopathy. Refer to abdominal imaging for detection of primary malignancy. N.B. : Gareth Lal, Charge Nurse, RN, confirmed on 08/29/2020 16:58:11 (ET) that the healthcare facility has received the radiology report. Electronically Signed: Milla Pagan MD at 16:41 EDT Tel , Service support , Charges/Coding Visit Charges Inpatient E&M: 00871 Init Hosp L3
[2020-08-30 07:01] LABS: Absolute Lymphocyte Count 0.53 X10^3/uL (0.83-4.51); Absolute Neutrophil Count 4.1 X10^3/uL (2.0-7.7); Basophil# 0.01 X10^3/uL; Basophil% 0.2 % (0-1); Eosinophil# 0.06 X10^3/uL; Eosinophils% 1.1 % (0-5); Hematocrit 31.9 % (37-47); Hemoglobin 9.9 g/dL (12.0-15.0); Lymphocyte # 0.53 X10^3/ul (0.83-4.51); Lymphocyte % 9.8 % (19-41); Mean Corpuscular Hgb 27.2 pg (27.0-32.0); Mean Corpuscular Volume 87.6 fL (81-99); Mean Platelet Vol. 10.9 fl (6.2-12.0); Monocyte# 0.59 X10^3/uL; Monocyte% 10.9 % (0-10); NRBC Flagged by Analyzer 0 % (0-5); Neutrophil # 4.14 X10^3/uL (2.7-7.7); Neutrophil % 76.7 % (47-70); POSITIVE DIFFERENTIAL YES; Platelet Count 209 K/mm3 (150-450); RBC Distribution Width CV 15.9 % (11.6-14.6); RBC Distribution Width SD 50.1 fl (35.1-43.9); Red Blood Count 3.64 M/mm3 (4.2-5.4); White Blood Count 5.4 K/mm3 (4.4-11.0)
[2020-08-30 07:08] LABS: Differential Indicated SCAN CRITERIA MET
[2020-08-30 07:41] LABS: AST(SGOT) 27 U/L (15-37); Alanine Aminotransfer ALT/SGPT 26 U/L (13-56); Albumin, Serum 2.2 g/dL (3.2-5.0); Alkaline Phosphatase 116 U/L (45-117); Anion Gap 7 (5-15); BUN 17 mg/dL (7-18); BUN/Creat Ratio 26.9 RATIO (10-20); Bilirubin, Direct 0.33 mg/dL (0.00-0.30); Calcium,Total 7.8 mg/dL (8.5-10.1); Chloride 101 mmol/L (98-107); Creatinine, Serum 0.63 mg/dL (0.55-1.02); EST Glomerular Filtration Rate 98 mL/min (>60); Est Glom Filt Rate - Afr Amer 119 mL/min (>60); Estimated Creatinine Clearance 40.22 ml/min; Globulin 3.5 g/dL (2.2-4.2); Glucose 94 mg/dL (74-106); Protein, Total 5.7 g/dL (6.4-8.2); Sodium Level 140 mmol/L (136-145)
[2020-08-30 08:36] LABS: Magnesium 1.5 mg/dL (1.6-2.6)
[2020-08-30] MEDS: Ceftriaxone 1 GM/50 ML BAG IV (10:10)
[2020-08-30] MEDS: 0.9% Saline Lock 10 ML Syringe IV (10:13)
[2020-08-30] MEDS: Furosemide 40 MG/4 ML Vial IV ×2 (10:14→18:11)
[2020-08-30 10:15] LABS: Partial Thromboplast Time 54.5 Seconds (24.1-36.2)
[2020-08-30] MEDS: Heparin Injection (Vial) 5,000 UNIT/ML VIAL IV (10:24)
[2020-08-30] MEDS: Potassium Chloride 10mEq/100mL 10 MEQ/100 ML IV.SOLN. 100 MEQ IV BOLUS ×4 (10:27→13:45)
--- NOTE | 2020-08-30 11:46 | PCM.CONS.C ---
Assessment & Plan Assessment/Plan (1) Elevated troponin: PLAN: Troponin elevation is likely secondary to sinus tachycardia and respiratory distress. Agree with checking a 2D echo. Does not appear to be an acute coronary syndrome. HPI Consult Data Date of Consult: 08/30/20 HPI Narrative Reason for Consultation: Elevated troponin HPI Narrative: CHESTER BROOKS, is a 70 F who presented to the emergency department on August 29 with palpitations. The patient's visiting nurses service was concerned that the patient may have atrial fibrillation and subsequently referred her to the emergency department for evaluation. In the ER patient was found to have sinus tachycardia. On presentation to the emergency department, the patient was noted to be afebrile and hemodynamically stable. She was initially maintaining appropriate oxygen saturations in the low 90s on room air. Initial laboratory evaluation revealed a normal white blood cell count. Coagulation profile revealed an INR of 1.3. Chemistry profile was notable for a sodium of 142, potassium of 2.9 and creatinine of 0.69. Troponin was mildly elevated to 0.108. BNP was within normal limits. CT chest with contrast was obtained and revealed bilateral PE along with a left pleural effusion and associated compressive atelectasis. A large amount of ascites was noted. Incidental note was made of an anterior mediastinal mass concerning for possible metastatic disease versus lymphadenopathy. Patient denies any chest pain. She does have shortness of breath. Her troponin has been in the 0.1 range. FORMERLY [facility] Medical History Arthritis Hypertension Home Medications meloxicam 15 mg PO DAILY 08/26/20 [History Last Taken 08/29/20] multivitamin 1 tab PO DAILY 08/29/20 [History Last Taken Unknown] Allergy/AdvReac Type Severity Reaction Status Date / Time No Known Allergies Allergy Verified 08/29/20 10:45 Surgical History History of cholecystectomy Social History Smoking Status: Former smoker Physical Exam Const alert and oriented x3 Orientation / Consciousness: awake HEENT normocephalic Eyes no scleral icterus Resp Auscultation: diminished lung sounds left Cardio regular rate Extremity General Extremity: edema bilateral lower extremity Neuro oriented x3 Psych mental status grossly normal Charges/Coding Visit Charges Inpatient E&M: 29748 Init Hosp L2 Objective Data Vital Signs: Vital Signs Temp Pulse Resp BP Pulse Ox 98.5 F 93 12 119/76 95 08/30/20 03:31 08/30/20 07:30 08/30/20 03:31 08/30/20 03:31 08/30/20 07:08 Oxygen Flow Rate (L/min) 3 Oxygen Delivery Method Nasal Cannula Weight: 167 lb 5.294 oz Body Mass Index (BMI) 30.6 Intake & Output: Intake and Output for Last 24 Hours 08/28/20 08/29/20 08/30/20 23:59 23:59 23:59 Intake Total 850 / 850 426.40 / 426.40 Output Total 1300 / 1300 250 / 250 Balance -450 / -450 176.40 / 176.40 Lab / Micro Data Result Diagrams: 08/30/20 06:48 08/30/20 06:48 Labs: Laboratory Results - last 24 hr 08/29/20 08/29/20 08/29/20 11:58 11:58 11:58 WBC 6.3 RBC 4.24 Hgb 11.6 L Hct 37.7 MCV 88.9 MCH 27.4 MCHC 30.8 L RDW Std Deviation 51.3 H RDW Coeff of Katie 16.0 H Plt Count 242 MPV 10.8 Immature Gran % (Auto) 1.000 H Neut % (Auto) 80.2 H Lymph % (Auto) 7.9 L [place] % (Auto) 10.5 H Eos % (Auto) 0.2 Baso % (Auto) 0.2 Absolute Neuts (auto) 5.1 Absolute Lymphs (auto) 0.50 L Nucleated RBC % 0 Differential Comment SCANNED PT INR APTT Sodium 142 Potassium 2.9 L Chloride 101 Carbon Dioxide 31.0 Anion Gap 10 BUN 18 Creatinine 0.69 Estim Creat Clear Calc 40.22 Est GFR (MDRD) Af Amer 107 Est GFR (MDRD) Non-Af 88 BUN/Creatinine Ratio 26.0 H Glucose 91 Calcium 8.4 L Magnesium Total Bilirubin Direct Bilirubin AST ALT Alkaline Phosphatase Troponin I 0.108 H B-Natriuretic Peptide 78.2 Total Protein Albumin Globulin 08/29/20 08/29/20 08/29/20 15:35 18:40 18:40 WBC RBC Hgb Hct MCV MCH MCHC RDW Std Deviation RDW Coeff of Katie Plt Count MPV Immature Gran % (Auto) Neut % (Auto) Lymph % (Auto) [place] % (Auto) Eos % (Auto) Baso % (Auto) Absolute Neuts (auto) Absolute Lymphs (auto) Nucleated RBC % Differential Comment PT 15.5 H INR 1.3 APTT 26.8 Sodium Potassium Chloride Carbon Dioxide Anion Gap BUN Creatinine Estim Creat Clear Calc Est GFR (MDRD) Af Amer Est GFR (MDRD) Non-Af BUN/Creatinine Ratio Glucose Calcium Magnesium Total Bilirubin Direct Bilirubin AST ALT Alkaline Phosphatase Troponin I 0.129 H 0.137 H B-Natriuretic Peptide Total Protein Albumin Globulin 08/30/20 08/30/20 08/30/20 01:06 06:48 06:48 WBC 5.4 RBC 3.64 L Hgb 9.9 L Hct 31.9 L MCV 87.6 MCH 27.2 MCHC 31.0 L RDW Std Deviation 50.1 H RDW Coeff of Katie 15.9 H Plt Count 209 MPV 10.9 Immature Gran % (Auto) 1.300 H Neut % (Auto) 76.7 H Lymph % (Auto) 9.8 L [place] % (Auto) 10.9 H Eos % (Auto) 1.1 Baso % (Auto) 0.2 Absolute Neuts (auto) 4.1 Absolute Lymphs (auto) 0.53 L Nucleated RBC % 0 Differential Comment PT INR APTT 149.1 H* Sodium 140 Potassium 3.0 L Chloride 101 Carbon Dioxide 32.0 Anion Gap 7 BUN 17 Creatinine 0.63 Estim Creat Clear Calc 40.22 Est GFR (MDRD) Af Amer 119 Est GFR (MDRD) Non-Af 98 BUN/Creatinine Ratio 26.9 H Glucose 94 Calcium 7.8 L Magnesium Total Bilirubin 0.70 Direct Bilirubin 0.33 H AST 27 ALT 26 Alkaline Phosphatase 116 Troponin I 0.090 H B-Natriuretic Peptide Total Protein 5.7 L Albumin 2.2 L Globulin 3.5 08/30/20 08/30/20 06:48 09:52 WBC RBC Hgb Hct MCV MCH MCHC RDW Std Deviation RDW Coeff of Katie Plt Count MPV Immature Gran % (Auto) Neut % (Auto) Lymph % (Auto) [place] % (Auto) Eos % (Auto) Baso % (Auto) Absolute Neuts (auto) Absolute Lymphs (auto) Nucleated RBC % Differential Comment PT INR APTT 54.5 H Sodium Potassium Chloride Carbon Dioxide Anion Gap BUN Creatinine Estim Creat Clear Calc Est GFR (MDRD) Af Amer Est GFR (MDRD) Non-Af BUN/Creatinine Ratio Glucose Calcium Magnesium 1.5 L Total Bilirubin Direct Bilirubin AST ALT Alkaline Phosphatase Troponin I B-Natriuretic Peptide Total Protein Albumin Globulin Micro: Microbiology 08/30/20 06:15 Urine, Clean Catch Legionella Antigen - Final 08/30/20 06:15 Urine, Clean Catch Streptococcus pneumoniae Antigen (M - Final 08/29/20 13:25 Mucosa - Nose SARS-CoV-2 Antigen (Rapid) - Final Cardiology Labs/Tests 08/29/20 11:58: WBC 6.3, RBC 4.24, Hgb 11.6 L, Hct 37.7, MCV 88.9, MCH 27.4, MCHC 30.8 L, Plt Count 242, MPV 10.8, Immature Gran % (Auto) 1.000 H, Neut % (Auto) 80.2 H, Lymph % (Auto) 7.9 L, [place] % (Auto) 10.5 H, Eos % (Auto) 0.2, Baso % (Auto) 0.2, Absolute Neuts (auto) 5.1, Nucleated RBC % 0 08/29/20 11:58: Sodium 142, Potassium 2.9 L, Chloride 101, Carbon Dioxide 31.0, Anion Gap 10, BUN 18, Creatinine 0.69, Est GFR (MDRD) Af Amer 107, Est GFR (MDRD) Non-Af 88, BUN/Creatinine Ratio 26.0 H, Glucose 91, Calcium 8.4 L, Troponin I 0.108 H 08/29/20 11:58: B-Natriuretic Peptide 78.2 08/29/20 15:35: Troponin I 0.129 H 08/29/20 18:40: Troponin I 0.137 H 08/29/20 18:40: PT 15.5 H, INR 1.3, APTT 26.8 08/30/20 01:06: APTT 149.1 H* 08/30/20 06:48: WBC 5.4, RBC 3.64 L, Hgb 9.9 L, Hct 31.9 L, MCV 87.6, MCH 27.2, MCHC 31.0 L, Plt Count 209, MPV 10.9, Immature Gran % (Auto) 1.300 H, Neut % (Auto) 76.7 H, Lymph % (Auto) 9.8 L, [place] % (Auto) 10.9 H, Eos % (Auto) 1.1, Baso % (Auto) 0.2, Absolute Neuts (auto) 4.1, Nucleated RBC % 0 08/30/20 06:48: Sodium 140, Potassium 3.0 L, Chloride 101, Carbon Dioxide 32.0, Anion Gap 7, BUN 17, Creatinine 0.63, Est GFR (MDRD) Af Amer 119, Est GFR (MDRD) Non-Af 98, BUN/Creatinine Ratio 26.9 H, Glucose 94, Calcium 7.8 L, Total Bilirubin 0.70, Direct Bilirubin 0.33 H, Troponin I 0.090 H 08/30/20 06:48: Magnesium 1.5 L 08/30/20 09:52: APTT 54.5 H Rhythm: EKG: ECHO: Stress Test: Cardiac Cath: PCI: CT Surgery: Holter monitor: EPS: PPM: CXR: Chest CT Scan: Radiography Diagnostic Testing: Radiology Impression Chest X-Ray 08/29/20 10:48 IMPRESSION: Moderate left pleural effusion with atelectasis or consolidation in the left lung base. Recommend follow-up to resolution. at 1153 Reported and signed by: Bhavani Rod MD Electronically Signed: Bhavani Rod MD at 11:52 EDT Tel , Service support , Chest CT 08/29/20 14:16 IMPRESSION: 1. Small to moderate acute pulmonary embolism. 2. Mild pulmonary arterial hypertension. 3. Large left effusion, left lower lobe collapse. 4. Anterior mediastinal masses, presumably metastases versus lymphadenopathy. Refer to abdominal imaging for detection of primary malignancy. Electronically Signed: Milla Pagan MD at 16:41 EDT Tel , Service support , ADDENDUM: 08/29/20 1705 IMPRESSION: 1. Small to moderate acute pulmonary embolism. 2. Mild pulmonary arterial hypertension. 3. Large left effusion, left lower lobe collapse. 4. Anterior mediastinal masses, presumably metastases versus lymphadenopathy. Refer to abdominal imaging for detection of primary malignancy. N.B. : Gareth Lal, Charge Nurse, RN, confirmed on 08/29/2020 16:58:11 (ET) that the healthcare facility has received the radiology report. Electronically Signed: Milla Pagan MD at 16:41 EDT Tel , Service support ,
--- NOTE | 2020-08-30 12:32 | PN.HOSP_ITS ---
Subjective Subjective Patient seen and examined. She has no complaints today. Review of systems is otherwise negative. Objective Data Objective Data Vital Signs: Vital Signs Temp Pulse Resp BP Pulse Ox 98.5 F 93 12 119/76 95 08/30/20 03:31 08/30/20 07:30 08/30/20 03:31 08/30/20 03:31 08/30/20 07:08 Oxygen Flow Rate (L/min) 3 Oxygen Delivery Method Nasal Cannula Weight: 167 lb 5.294 oz Body Mass Index (BMI) 30.6 Intake & Output: Intake and Output for Last 24 Hours 08/28/20 08/29/20 08/30/20 23:59 23:59 23:59 Intake Total 850 / 850 426.40 / 426.40 Output Total 1300 / 1300 250 / 250 Balance -450 / -450 176.40 / 176.40 Lab / Micro Data Result Diagrams: 08/30/20 06:48 08/30/20 06:48 Labs: Laboratory Results - last 24 hr 08/29/20 08/29/20 08/29/20 11:58 15:35 18:40 WBC RBC Hgb Hct MCV MCH MCHC RDW Std Deviation RDW Coeff of Katie Plt Count MPV Immature Gran % (Auto) Neut % (Auto) Lymph % (Auto) Day % (Auto) Eos % (Auto) Baso % (Auto) Absolute Neuts (auto) Absolute Lymphs (auto) Nucleated RBC % PT INR APTT Sodium Potassium Chloride Carbon Dioxide Anion Gap BUN Creatinine Estim Creat Clear Calc Est GFR (MDRD) Af Amer Est GFR (MDRD) Non-Af BUN/Creatinine Ratio Glucose Calcium Magnesium Total Bilirubin Direct Bilirubin AST ALT Alkaline Phosphatase Troponin I 0.129 H 0.137 H B-Natriuretic Peptide 78.2 Total Protein Albumin Globulin 08/29/20 08/30/20 08/30/20 18:40 01:06 06:48 WBC 5.4 RBC 3.64 L Hgb 9.9 L Hct 31.9 L MCV 87.6 MCH 27.2 MCHC 31.0 L RDW Std Deviation 50.1 H RDW Coeff of Katie 15.9 H Plt Count 209 MPV 10.9 Immature Gran % (Auto) 1.300 H Neut % (Auto) 76.7 H Lymph % (Auto) 9.8 L Day % (Auto) 10.9 H Eos % (Auto) 1.1 Baso % (Auto) 0.2 Absolute Neuts (auto) 4.1 Absolute Lymphs (auto) 0.53 L Nucleated RBC % 0 PT 15.5 H INR 1.3 APTT 26.8 149.1 H* Sodium Potassium Chloride Carbon Dioxide Anion Gap BUN Creatinine Estim Creat Clear Calc Est GFR (MDRD) Af Amer Est GFR (MDRD) Non-Af BUN/Creatinine Ratio Glucose Calcium Magnesium Total Bilirubin Direct Bilirubin AST ALT Alkaline Phosphatase Troponin I B-Natriuretic Peptide Total Protein Albumin Globulin 08/30/20 08/30/20 08/30/20 06:48 06:48 09:52 WBC RBC Hgb Hct MCV MCH MCHC RDW Std Deviation RDW Coeff of Katie Plt Count MPV Immature Gran % (Auto) Neut % (Auto) Lymph % (Auto) Day % (Auto) Eos % (Auto) Baso % (Auto) Absolute Neuts (auto) Absolute Lymphs (auto) Nucleated RBC % PT INR APTT 54.5 H Sodium 140 Potassium 3.0 L Chloride 101 Carbon Dioxide 32.0 Anion Gap 7 BUN 17 Creatinine 0.63 Estim Creat Clear Calc 40.22 Est GFR (MDRD) Af Amer 119 Est GFR (MDRD) Non-Af 98 BUN/Creatinine Ratio 26.9 H Glucose 94 Calcium 7.8 L Magnesium 1.5 L Total Bilirubin 0.70 Direct Bilirubin 0.33 H AST 27 ALT 26 Alkaline Phosphatase 116 Troponin I 0.090 H B-Natriuretic Peptide Total Protein 5.7 L Albumin 2.2 L Globulin 3.5 Micro: Microbiology 08/30/20 06:15 Urine, Clean Catch Legionella Antigen - Final 08/30/20 06:15 Urine, Clean Catch Streptococcus pneumoniae Antigen (M - Final 08/29/20 13:25 Mucosa - Nose SARS-CoV-2 Antigen (Rapid) - Final Radiography Diagnostic Testing: Radiology Impression Chest CT 08/29/20 14:16 IMPRESSION: 1. Small to moderate acute pulmonary embolism. 2. Mild pulmonary arterial hypertension. 3. Large left effusion, left lower lobe collapse. 4. Anterior mediastinal masses, presumably metastases versus lymphadenopathy. Refer to abdominal imaging for detection of primary malignancy. Electronically Signed: Milla Pagan MD at 16:41 EDT Tel , Service support , ADDENDUM: 08/29/20 1705 IMPRESSION: 1. Small to moderate acute pulmonary embolism. 2. Mild pulmonary arterial hypertension. 3. Large left effusion, left lower lobe collapse. 4. Anterior mediastinal masses, presumably metastases versus lymphadenopathy. Refer to abdominal imaging for detection of primary malignancy. N.B. : Gareth Lal, Charge Nurse, RN, confirmed on 08/29/2020 16:58:11 (ET) that the healthcare facility has received the radiology report. Electronically Signed: Milla Pagan MD at 16:41 EDT Tel , Service support , Physical Exam Const alert, oriented x3 and no apparent distress General Appearance: cooperative Exam Limitations: no limitations HEENT normocephalic, head/scalp atraumatic, hearing grossly normal bilaterally and moist oral mucous membranes Head and Scalp: normocephalic Eyes PERRL, EOMs intact bilaterally and conjunctivae normal Neck no lymphadenopathy, supple, no JVD and no carotid bruits Resp Resp Narrative: markedly diminished breath sounds bibasally, and in the right lung elkins. on 3L of oxygen. Cardio regular rate, regular rhythm, S1 normal heart sound, S2 normal heart sound and no murmurs Cardio Narrative: tachycardic GI soft to palpation, non-tender and non-distended GI Narrative: abdomen mildly distended. Extremity normal to inspection and full ROM Extremity Narrative: 2+ bilateral LE pitting edema Peripheral Pulses: Yes pulses 2+ throughout Skin no rashes or lesions noted Neuro oriented x3 Sensorium / Orientation: awake and alert Psych affect normal Assessment & Plan Assessment/Plan (1) Pleural effusion: PLAN: #Acute hypoxemic respiratory insufficiency Left pleural effusion * etiology is unclear. Differentials include a lung malignancy vs effusion due to liver disease, as niece said patient had been recently told that she had cirrhosis. * pulmonology * For thoracentesis on Monday and will send fluid for analysis to ascertain the cause of the pleural effusion * Breathing treatments with bronchodilators. Give oxygen as needed and titrate to maintain saturation above 90%. * Chest x-ray showed moderate left pleural effusion with atelectasis or consolidation in the left lung base. * CTA chest showed bilateral PE and large left pleural effusion, with left lower lobe collapse, as well s anterior mediastinal michelle and large ascites * being diuresed with IV lasix 40mg bid * #Elevated troponin: * Initial troponin 0.108 and trended up slightly to a peak of 0.137 but was down to 0.090 this morning. * BNP is only 78.2. Cardiology on board. 2D echo pending. * Per cardiology, elevated troponins is likely due to sinus tachycardia and respiratory distress and does not appear to be due to acute coronary syndrome #Bilateral PE * CTA of the chest showed bilateral small to moderate PE. Currently on heparin drip. Will need to DC heparin drip prior to thoracentesis. * Pulmonology on board. Hold off on getting Duplex of LEs as it will not cell changer if she has DVT as she is being treated for PE #Hypokalemia: Potassium is 3.0. Will replace aggressively. Check magnesium #SIRS criteria * tachycardia and tachypnea have resolved, and were likely due to PE * Chest x-ray does show some evidence of consolidation so she could have a pneumonia as well * .on IV ceftriaxone and azithromycin, pending blood culture results * #DVT prophylaxis:not indicated as she is being treated for PE CODE STATUS: Full code * . Charges/Coding Visit Charges Inpatient E&M: 80009 Subs Hosp L3
[2020-08-30] MEDS: Magnesium Sulfate 4gm/100mL 4 GM/100 ML IV.SOLN. IV (14:32)
[2020-08-30 17:07] LABS: Partial Thromboplast Time 70.2 Seconds (24.1-36.2)
[2020-08-30 22:43] LABS: Partial Thromboplast Time 66.5 Seconds (24.1-36.2)
[2020-08-30] MEDS: HEPARIN/D5w 25,000 UNITS 25,000 UNITS/250 ML IV.SOLN. 9 UNITS IV (23:47)
[2020-08-31] VITALS (11 sets, daily range): BP systolic 107–127; BP diastolic 60–87; PULSE 92–111; RESP 18–20; TEMP 36–36.6; O2SAT 93–97
--- NOTE | 2020-08-31 | FLU_PTH ---
PATIENT: CHESTER BROOKS LOC: [facility] U#:[id number] AGE/SX: 70/F ROOM: [facility] RE08/29/[address]: Dr. Holly Mora DO : 1950 BED: 1 DIS: 09/02/2020 SPEC #: [id number] RECD: 08/31/20 15:21 STATUS: KATLYN RE #: [id number] MISBAH: 08/31/20 00:[address]: Holly Mora DEPT: CYTOLOGY RECD BY: Amalia Regalado ENTERED: 09/01/20 09:53 SP TYPE: Fluid OTHR DR: MD Dr. Tj Castillo DO Dr. Nana Yaa Koram, MD Dr. Nagapradee Nagajothi, MD Dr. Scott Hannan, MD Christina Muller, DICTAPHONE OPERATOR-C Tissues: Pleural fluid, NOS Procedures: Special Stain Group II Surgery Specimen Level IV Cytospin Fluid HEADER OPERATION: Thoracentesis, left PRE-OP DIAGNOSIS: Pleural effusion TISSUE SUBMITTED: Thoracentesis fluid for cytology DIAGNOSIS CYTOLOGY Thoracentesis fluid for cytology (cytospin and cell block). 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 See comment. AM:kellie 09/04/2020 COMMENT Immunohistochemistry ([id number]) supports the above diagnosis. Case has been reviewed in consultation with Dr. Dimas who concurs with the above diagnosis. IDC:[email or web address] CYTOLOGY STUDY Slides are reviewed. CYTOLOGY GROSS Received is 110 ml of red cloudy fluid labeled with the patient's name and and designated per the requisition as thoracentesis. Submitted for cytology preparation including cell block. / kellie 09/01/2020 TC:0 CPT: 45892, 34049
--- NOTE | 2020-08-31 | IMM_PTH ---
PATIENT: CHESTER BROOKS LOC: [facility] U#:[id number] AGE/SX: 70/F ROOM: [facility] RE08/29/[address]: Dr. Holly Mora DO : 1950 BED: 1 DIS: 09/02/2020 SPEC #: [id number] RECD: 09/02/20 13:15 STATUS: SOUJanuary REQ #: [id number] MISBAH: 08/31/20 00:[address]: Holly Mora DEPT: IMMUNOHISTOCHEMISTRY RECD BY: Traci Escamilla ENTERED: 09/02/20 13:17 SP TYPE: IMMUNO OTHR DR: MD Dr. Tj Castillo DO Dr. Nana Yaa Koram, MD Dr. Nagapradee Nagajothi, MD Dr. Scott Hannan, MD Christina Muller, SKEIN MERCERIZING MACHINE OPERATOR-C Tissues: THORACIC FLUID Procedures: RCC (add) NAPSIN A (add) CA-125 (add) Dominic Ret (add) CEA (add) CK14 (add) CK20 (add) CK5-6 (add) CK7 (add) CK8 (add) DELACRUZ-2 (add) LAN (add) HEP PAR (add) MACRO (add) MAMM (add) P53 (add) IN (add) TTF1 (add) Vimentin (add) Pankeratin (add) GATA3 (add) P40 (add) CDX2 (add) ER (initial) S-100 (add) PHYSICIAN & INSTITUTION [facility] [address] [place] [id number] SPECIMEN INFORMATION: Tissue Source: Thoracentesis fluid Clinical Info: Pleural effusion Specimen Number: [id number] CPT code: 09749, 36519 x24 METHODOLOGY: Deparaffinized sections of prefer/formalin-fixed tissue or PAP/DQ stained slides are incubated with monoclonal/polyclonal antibodies/oligonucleotide probes. Localization is made via biotin free immunoperoxidase method. Appropriate controls are performed and reacted as expected. Results on target cell population are indicated in the following table: RESULTS: ANTIBODY / CLONE RESULT ER (6F11) negative IN (1E2) positive, dim AE1-3 (AE1/AE3/PCK26) positive CK7 (OV-TL12/30) positive CK8 (56dtsdV58) positive CK20 (KS20.8) negative DELACRUZ-2 (SP21) negative CDX2 (QPX2880N) positive Vimentin (V9) negative Macro (HAM-56) negative S-100 (4C4.9) negative TTF-1 (8G7G3/1) negative Napsin A (Rabbit Polyclonal) negative HepPar (OCh1E5) negative RCC (PN-15) negative CALRET (polyclonal) negative CK5-6 (D5 & 1684) negative CK14 (LL002) positive, dim P40 (BC28) negative LAN (E29) positive CEA (11-7/TF-3HB-1) negative CA125 (OC125) positive P53 (DO-7) positive, 90% GATA3 (L50-823) negative Mammaglobin (31A5) negative These tests were developed and their performance characteristics determined by [facility]. They may not have been cleared or approved by the U.S. Food and Drug Administration. The FDA has determined that such clearance or approval is not necessary. The above immunohistochemical/dualISH markers are ordered and reviewed by the Pathologist. INTERPRETATION: Thoracentesis fluid: Metastatic non-small cell carcinoma. See comment. AM:kellie 09/04/2020 Comment: The IHC profile favors an ovarian primary. Clinical correlation is necessary. Case has been reviewed in consultation with Dr. Dimas who concurs with the above diagnosis. IDC:[id number]
[2020-08-31 04:52] LABS: Absolute Lymphocyte Count 0.58 X10^3/uL (0.83-4.51); Absolute Neutrophil Count 4.1 X10^3/uL (2.0-7.7); Basophil# 0.02 X10^3/uL; Basophil% 0.4 % (0-1); Eosinophils% 1.8 % (0-5); Hematocrit 32.1 % (37-47); Hemoglobin 10.2 g/dL (12.0-15.0); Lymphocyte # 0.58 X10^3/ul (0.83-4.51); Lymphocyte % 10.5 % (19-41); Mean Corp Hgb Conc 31.8 g/dL (32-36); Mean Corpuscular Hgb 27.8 pg (27.0-32.0); Mean Corpuscular Volume 87.5 fL (81-99); Mean Platelet Vol. 10.6 fl (6.2-12.0); Monocyte# 0.64 X10^3/uL; Monocyte% 11.6 % (0-10); NRBC Flagged by Analyzer 0 % (0-5); Neutrophil # 4.11 X10^3/uL (2.7-7.7); Neutrophil % 74.3 % (47-70); POSITIVE DIFFERENTIAL YES; Platelet Count 240 K/mm3 (150-450); RBC Distribution Width SD 50.1 fl (35.1-43.9); Red Blood Count 3.67 M/mm3 (4.2-5.4); White Blood Count 5.5 K/mm3 (4.4-11.0)
[2020-08-31 05:02] LABS: Partial Thromboplast Time 72.4 Seconds (24.1-36.2)
[2020-08-31 05:03] LABS: Differential Indicated SCAN CRITERIA MET
[2020-08-31 05:11] LABS: ALB/GLOB Ratio 0.6 RATIO (0.9-2.4); AST(SGOT) 33 U/L (15-37); Alanine Aminotransfer ALT/SGPT 28 U/L (13-56); Albumin, Serum 2.1 g/dL (3.2-5.0); Alkaline Phosphatase 141 U/L (45-117); Anion Gap 7 (5-15); BUN 14 mg/dL (7-18); BUN/Creat Ratio 22.4 RATIO (10-20); Calcium,Total 7.5 mg/dL (8.5-10.1); Chloride 99 mmol/L (98-107); Creatinine, Serum 0.62 mg/dL (0.55-1.02); EST Glomerular Filtration Rate 100 mL/min (>60); Est Glom Filt Rate - Afr Amer 120 mL/min (>60); Estimated Creatinine Clearance 40.22 ml/min; Globulin 3.5 g/dL (2.2-4.2); Glucose 111 mg/dL (74-106); Potassium 3.2 mmol/L (3.5-5.1); Protein, Total 5.6 g/dL (6.4-8.2); Sodium Level 138 mmol/L (136-145)
--- NOTE | 2020-08-31 07:00 | US_ITS ---
PROCEDURE: ULTRASOUND GUIDED THORACENTESIS. DATE: 08/31/2020.. INDICATION: Female, 70 years old. Left pleural effusion. PHYSICIAN: Bobby Thakkar M.D. PROCEDURE: The risks, benefits, and alternatives to the procedure were explained to the patient. The specific risks of bleeding, infection, and pneumothorax requiring chest tube insertion were discussed and accepted. Written informed consent was obtained. Ultrasonographic evaluation of the left lower pleural space was carried out. An adequate pocket was identified. The patient was placed in the sitting, upright position. The overlying skin was prepped and draped in sterile fashion. 1% lidocaine was administered subcutaneously for local anesthesia. Under ultrasound guidance, a 5 Anguillan thoracentesis needle/catheter system was advanced into the left posterior lower pleural fluid collection. Approximately 800 mL of bloody fluid was drained. The catheter was removed, and a sterile dressing was applied. A specimen was collected and sent to the laboratory for analysis, as requested by the referring clinician. The patient tolerated the procedure well. A chest x-ray was ordered. US/Thoracentesis W US IMPRESSION: Ultrasound-guided left thoracentesis. Electronically Signed: Bobby Thakkar MD at 9:00 EDT , Service support ,
--- NOTE | 2020-08-31 07:00 | ECHOD_ITS ---
Reason For Study: CONGENITAL HEART DISEASE Procedure This was a 2D Doppler, Color Flow transthoracic echocardiogram. The study was technically difficult. Exam performed portable in patient room. Left Ventricle Normal LV size. Left ventricular systolic function is normal. The estimated ejection fraction is 60 %. Diastolic function is indeterminate. No regional wall motion abnormalities noted. Right Ventricle Normal RV size. Normal systolic function. Atria The left atrium is moderately enlarged. Normal right atrium. No doppler evidence for ASD. Mitral Valve There is no mitral annular calcification. Normal mitral valve. Mild (1+) mitral valve insufficiency. Tricuspid Valve Normal tricuspid valve. Trivial tricuspid valve insufficiency. Right ventricular systolic pressure estimated to be 44 mmHg. Aortic Valve Trisinus/trileaflet aortic valve. Normal aortic valve. Pulmonic Valve The pulmonic valve is not well visualized. Great Vessels Normal sized aortic root. Pericardium/Pleural No pericardial effusion. MMode/2D Measurements & Calculations LVIDd: 4.9 cm IVSd: 0.87 cm Ao root diam: 3.3 cm LVIDs: 3.3 cm LVPWd: 0.94 cm RVDd: 3.4 cm FS: 32.0 % LAV(MOD-bp): 33.9 ml LVAd ap4: 23.1 cm2 SV(MOD-sp4): 35.8 ml LAV(MOD-bp) Indexed: 19.1 ml/m2 LVLd ap4: 6.9 cm LAV(MOD-sp2): 32.0 ml EDV(MOD-sp4): 62.7 ml LAV(MOD-sp4): 35.5 ml EDV(sp4-el): 65.9 ml LVAs ap4: 14.1 cm2 LVLs ap4: 6.2 cm ESV(MOD-sp4): 26.9 ml ESV(sp4-el): 27.1 ml EF(MOD-sp4): 57.1 % EF(sp4-el): 58.8 % SV(sp4-el): 38.8 ml LA A4 area: 15.7 cm2 LA dimension(2D): 3.6 cm RA A4 area: 11.9 cm2 Time Measurements MV dec time: 0.15 sec Doppler Measurements & Calculations MV E max tigre: 68.0 cm/sec Lat Peak E' Tigre: 6.7 cm/sec Med Peak E' Tigre: 6.0 cm/sec MV A max tigre: 126.8 cm/sec E/E' lat: 10.2 E/E' med: 11.3 MV E/A: 0.54 Ao V2 max: 173.0 cm/sec LV V1 max: 107.2 cm/sec PA V2 max: 143.0 cm/sec Ao max P.0 mmHg LV V1 max P.6 mmHg TR max tigre: 318.8 cm/sec TR max P.7 mmHg ECHO/Echo Complete Interpretation Summary The study was technically difficult. Left ventricular systolic function is normal. The estimated ejection fraction is 60 %. The left atrium is moderately enlarged. Mild (1+) mitral valve insufficiency. Trivial tricuspid valve insufficiency. Right ventricular systolic pressure estimated to be 44 mmHg. Diastolic function is indeterminate. Ordering Physician: Luz Stafford Referring Physician: MARTIN MITTAL Performed By: Anitra Art RDCS
--- NOTE | 2020-08-31 08:05 | PCM.PN.CARD ---
Subjective Subjective Patient seen and evaluated. Appears to be stable this morning. Objective Data Vital Signs: Vital Signs Temp Pulse Resp BP Pulse Ox 97.0 F L 94 20 H 121/83 H 97 08/31/20 04:42 08/31/20 04:42 08/31/20 04:42 08/31/20 04:42 08/31/20 04:42 Oxygen Flow Rate (L/min) 4 Oxygen Delivery Method Nasal Cannula Weight: 167 lb 5.294 oz Body Mass Index (BMI) 30.6 Intake & Output: Intake and Output for Last 24 Hours 08/29/20 08/30/20 08/31/20 23:59 23:59 23:59 Intake Total 850 / 850 1650.33 / 1650.33 46.95 / 46.95 Output Total 1300 / 1300 1550 / 1550 200 / 200 Balance -450 / -450 100.33 / 100.33 -153.05 / -153.05 Lab / Micro Data Result Diagrams: 08/31/20 04:40 08/31/20 04:40 Labs: Laboratory Results - last 24 hr 08/30/20 08/30/20 08/30/20 06:48 09:52 16:25 WBC RBC Hgb Hct MCV MCH MCHC RDW Std Deviation RDW Coeff of Katie Plt Count MPV Immature Gran % (Auto) Neut % (Auto) Lymph % (Auto) [place] % (Auto) Eos % (Auto) Baso % (Auto) Absolute Neuts (auto) Absolute Lymphs (auto) Nucleated RBC % APTT 54.5 H 70.2 H Sodium Potassium Chloride Carbon Dioxide Anion Gap BUN Creatinine Estim Creat Clear Calc Est GFR (MDRD) Af Amer Est GFR (MDRD) Non-Af BUN/Creatinine Ratio Glucose Calcium Magnesium 1.5 L Total Bilirubin AST ALT Alkaline Phosphatase Total Protein Albumin Globulin Albumin/Globulin Ratio 08/30/20 08/31/20 08/31/20 22:22 04:40 04:40 WBC 5.5 RBC 3.67 L Hgb 10.2 L Hct 32.1 L MCV 87.5 MCH 27.8 MCHC 31.8 L RDW Std Deviation 50.1 H RDW Coeff of Katie 16.0 H Plt Count 240 MPV 10.6 Immature Gran % (Auto) 1.400 H Neut % (Auto) 74.3 H Lymph % (Auto) 10.5 L [place] % (Auto) 11.6 H Eos % (Auto) 1.8 Baso % (Auto) 0.4 Absolute Neuts (auto) 4.1 Absolute Lymphs (auto) 0.58 L Nucleated RBC % 0 APTT 66.5 H Sodium 138 Potassium 3.2 L Chloride 99 Carbon Dioxide 32.0 Anion Gap 7 BUN 14 Creatinine 0.62 Estim Creat Clear Calc 40.22 Est GFR (MDRD) Af Amer 120 Est GFR (MDRD) Non-Af 100 BUN/Creatinine Ratio 22.4 H Glucose 111 H Calcium 7.5 L Magnesium Total Bilirubin 0.60 AST 33 ALT 28 Alkaline Phosphatase 141 H Total Protein 5.6 L Albumin 2.1 L Globulin 3.5 Albumin/Globulin Ratio 0.6 L 08/31/20 04:40 WBC RBC Hgb Hct MCV MCH MCHC RDW Std Deviation RDW Coeff of Katie Plt Count MPV Immature Gran % (Auto) Neut % (Auto) Lymph % (Auto) [place] % (Auto) Eos % (Auto) Baso % (Auto) Absolute Neuts (auto) Absolute Lymphs (auto) Nucleated RBC % APTT 72.4 H Sodium Potassium Chloride Carbon Dioxide Anion Gap BUN Creatinine Estim Creat Clear Calc Est GFR (MDRD) Af Amer Est GFR (MDRD) Non-Af BUN/Creatinine Ratio Glucose Calcium Magnesium Total Bilirubin AST ALT Alkaline Phosphatase Total Protein Albumin Globulin Albumin/Globulin Ratio Micro: Microbiology 08/30/20 06:15 Urine, Clean Catch Legionella Antigen - Final 08/30/20 06:15 Urine, Clean Catch Streptococcus pneumoniae Antigen (M - Final 08/29/20 13:25 Mucosa - Nose SARS-CoV-2 Antigen (Rapid) - Final Cardiology Labs/Tests 08/30/20 06:48: Magnesium 1.5 L 08/30/20 09:52: APTT 54.5 H 08/30/20 16:25: APTT 70.2 H 08/30/20 22:22: APTT 66.5 H 08/31/20 04:40: WBC 5.5, RBC 3.67 L, Hgb 10.2 L, Hct 32.1 L, MCV 87.5, MCH 27.8, MCHC 31.8 L, Plt Count 240, MPV 10.6, Immature Gran % (Auto) 1.400 H, Neut % (Auto) 74.3 H, Lymph % (Auto) 10.5 L, [place] % (Auto) 11.6 H, Eos % (Auto) 1.8, Baso % (Auto) 0.4, Absolute Neuts (auto) 4.1, Nucleated RBC % 0 08/31/20 04:40: Sodium 138, Potassium 3.2 L, Chloride 99, Carbon Dioxide 32.0, Anion Gap 7, BUN 14, Creatinine 0.62, Est GFR (MDRD) Af Amer 120, Est GFR (MDRD) Non-Af 100, BUN/Creatinine Ratio 22.4 H, Glucose 111 H, Calcium 7.5 L, Total Bilirubin 0.60 08/31/20 04:40: APTT 72.4 H Rhythm: EKG: Normal sinus rhythm ECHO: Pending Stress Test: Cardiac Cath: PCI: CT Surgery: Holter monitor: EPS: PPM: CXR: Chest CT Scan: Physical Exam Const oriented x3 and healthy appearing Orientation / Consciousness: awake HEENT normocephalic Eyes PERRL and conjunctivae normal Neck supple, no JVD and no carotid bruits Chest inspection of chest normal Resp normal respiratory effort Auscultation: diminished lung sounds Cardio Palpation: normal PMI Rate: regular rate Rhythm: regular rhythm Heart Sounds: S1 normal and S2 normal Peripheral Pulses: pulses 2+ throughout GI normal to inspection, nondistended, normoactive bowel sounds Extremity normal to inspection and no clubbing, cyanosis or edema Psych mental status grossly normal Assessment & Plan Assessment/Plan (1) Elevated troponin: PLAN: She does have a mildly elevated troponin. It appears that the above is likely secondary to demand ischemia and or the pulmonary embolism. I would like us to obtain an echocardiogram to assess the left ventricular function. At this particular time I would not suggest any further cardiac work-up. (2) Hypertension: PLAN: She does have a history of hypertension which appears to be well controlled at this particular time. I would not make any other major changes. (3) Pulmonary embolism: PLAN: It appears that she has a recent evidence of pulmonary embolism. She also has mediastinal nodes and therefore needs to be worked up for a malignancy. Depending on the findings further recommendations will be made. The patient is currently on intravenous heparin. Would defer to the hospitalist for further therapy.
[2020-08-31] MEDS: Ceftriaxone 1 GM/50 ML BAG IV (09:20)
[2020-08-31] MEDS: Furosemide 40 MG/4 ML Vial IV ×2 (09:21→17:28)
--- NOTE | 2020-08-31 10:07 | PCM.PN.INT ---
Assessment & Plan Assessment/Plan (1) Pleural effusion: PLAN: RECOMMENDATIONS: 1. Continue empiric antimicrobials pending infectious work-up. 2. Continue diuretic therapy as tolerated by hemodynamics and renal function. 3. Await echocardiogram. 4. Perform ultrasound-guided thoracentesis today. 5. Send pleural fluid studies as noted below. 6. Wean supplemental oxygen to maintain saturations at or above 90%. 7. Encourage incentive spirometer use and mobilize patient as tolerated. IMPRESSIONS: 1. Acute hypoxemic respiratory insufficiency likely secondary to large left pleural effusion Potential etiologies include underlying liver disease, i.e. cirrhosis, infection, CHF or malignancy. It is reasonable to continue empiric antimicrobials for now. Echocardiogram is still pending. Patient does meet criteria for a diagnostic and therapeutic thoracentesis on the left side. Anticipate oxygenation status will improve following procedure. Patient has criteria concerning for both exudate and transudate etiologies. Further recommendations pending laboratory findings. 2. Hypokalemia/hypomagnesemia Additional electrolyte repletion. Recheck levels in the morning. 3. Anemia/unintentional weight loss/troponin elevation Complicates care, management, recovery and prognosis. Await results of echocardiogram. This note was generated with [employer] dictation software. It may contain incorrect words, spelling, and punctuation that were not noted in checking the note before signing. Subjective Subjective Patient did okay overnight. No acute issues have been reported. Patient is still requiring nasal cannula oxygen to maintain saturations. Patient is reportedly to get a thoracentesis later today. Patient continues to report a fullness in the chest. No nausea or vomiting of been reported. Objective Data Objective Data Vital Signs: Vital Signs Temp Pulse Resp BP Pulse Ox 36.6 C 94 18 124/87 H 97 08/31/20 09:04 08/31/20 09:04 08/31/20 09:04 08/31/20 09:04 08/31/20 09:04 Oxygen Flow Rate (L/min) 2 Oxygen Delivery Method Nasal Cannula Weight: 75.9 kg Body Mass Index (BMI) 30.6 Intake & Output: Intake and Output for Last 24 Hours 08/29/20 08/30/20 08/31/20 23:59 23:59 23:59 Intake Total 850 / 850 1650.33 / 1650.33 46.95 / 46.95 Output Total 1300 / 1300 1550 / 1550 200 / 200 Balance -450 / -450 100.33 / 100.33 -153.05 / -153.05 Lab / Micro Data Result Diagrams: 08/31/20 04:40 08/31/20 04:40 Labs: Laboratory Results - last 24 hr 08/30/20 08/30/20 08/30/20 09:52 16:25 22:22 WBC RBC Hgb Hct MCV MCH MCHC RDW Std Deviation RDW Coeff of Katie Plt Count MPV Immature Gran % (Auto) Neut % (Auto) Lymph % (Auto) [place] % (Auto) Eos % (Auto) Baso % (Auto) Absolute Neuts (auto) Absolute Lymphs (auto) Nucleated RBC % APTT 54.5 H 70.2 H 66.5 H Sodium Potassium Chloride Carbon Dioxide Anion Gap BUN Creatinine Estim Creat Clear Calc Est GFR (MDRD) Af Amer Est GFR (MDRD) Non-Af BUN/Creatinine Ratio Glucose Calcium Total Bilirubin AST ALT Alkaline Phosphatase Total Protein Albumin Globulin Albumin/Globulin Ratio 08/31/20 08/31/20 08/31/20 04:40 04:40 04:40 WBC 5.5 RBC 3.67 L Hgb 10.2 L Hct 32.1 L MCV 87.5 MCH 27.8 MCHC 31.8 L RDW Std Deviation 50.1 H RDW Coeff of Katie 16.0 H Plt Count 240 MPV 10.6 Immature Gran % (Auto) 1.400 H Neut % (Auto) 74.3 H Lymph % (Auto) 10.5 L [place] % (Auto) 11.6 H Eos % (Auto) 1.8 Baso % (Auto) 0.4 Absolute Neuts (auto) 4.1 Absolute Lymphs (auto) 0.58 L Nucleated RBC % 0 APTT 72.4 H Sodium 138 Potassium 3.2 L Chloride 99 Carbon Dioxide 32.0 Anion Gap 7 BUN 14 Creatinine 0.62 Estim Creat Clear Calc 40.22 Est GFR (MDRD) Af Amer 120 Est GFR (MDRD) Non-Af 100 BUN/Creatinine Ratio 22.4 H Glucose 111 H Calcium 7.5 L Total Bilirubin 0.60 AST 33 ALT 28 Alkaline Phosphatase 141 H Total Protein 5.6 L Albumin 2.1 L Globulin 3.5 Albumin/Globulin Ratio 0.6 L Micro: Microbiology 08/30/20 06:15 Urine, Clean Catch Legionella Antigen - Final 08/30/20 06:15 Urine, Clean Catch Streptococcus pneumoniae Antigen (M - Final 08/29/20 13:25 Mucosa - Nose SARS-CoV-2 Antigen (Rapid) - Final Physical Exam Const alert, oriented x3 and no apparent distress Constitutional Narrative: Lying in the bed General Appearance: cooperative HEENT normocephalic, head/scalp atraumatic and moist oral mucous membranes Eyes PERRL, EOMs intact bilaterally and conjunctivae normal Neck supple General: trachea midline Resp normal respiratory effort Resp Narrative: Dullness to percussion of the left lung base to scapula Effort and Inspection: able to speak in complete sentences Auscultation: rales localized (Right lower lobe) and diminished lung sounds Cardio regular rate and regular rhythm GI normal to inspection, nondistended, normoactive bowel sounds Extremity no clubbing, cyanosis or edema Skin no rashes or lesions noted Neuro CN's II-XII intact bilaterally, moves all extremities and no focal motor deficits Psych cooperative and affect normal Charges/Coding Visit Charges Inpatient E&M: 56525 Subs Hosp L2
--- NOTE | 2020-08-31 11:45 | CASEMGMT ---
BENITA JARA assessment: Face to Face with patient for initial transition planning/care coordination assessment. BENITA JARA introduced self and role at [facility], pt voices understanding and consents to assessment. Pt is sitting up in bed in no distress on 2L nc. Pt is A/Ox4 and answers questions appropriately. Care providers, pharmacy, and demographics verified. Presentation: Pt sent in for afib Admitting dx: Left pleural effusion, NSTEMI PCP: Cheri, but states won't be going back to him but declines list. Specialists: Pt states no current specialists. Preferred [facility]acy: [facility] Insurance: [employer] Prescription Benefit: [employer] Living Will/HPOA: Pt states does not have LW/HPOA and declines AD info at this time. LNOK: Myriam Gil, james Living Arrangements: Pt lives alone in mobile home and states no concerns at home. Pt is independent with ADL's, but niece helps if she can. Transportation: Pt drives self and states no transportation concerns. DME/HHC: Pt states has the following DME: cane and walker. Pt states no need for any further DME. Pt states no hx of HHC or SNF. Pt states no concerns with going home at discharge. Pt is retired. Pt does not smoke cigarettes or drink ETOH. Pt voices no further concerns/needs. CM to follow for PT/OT evals and any further discharge planning/needs. Advised pt to ask for CM if any further questions/concerns/needs arise, voices understanding. Pt Goal: Home Plan[place] BENITA JARA
[2020-08-31] MEDS: Lidocaine 2% (20 ml mdv) 20 ML Vial (15:05)
[2020-08-31 15:22] LABS: Cytology, Body Fluid / CSF SEE PATHOLOGY REPORT
[2020-08-31 15:49] LABS: Body Fluid Mononuclear WBC # 1.107 10^3/uL; Body Fluid Mononuclear WBC % 95.8 %; Body Fluid Polynuclear WBC # 0.048 10^3/uL; Body Fluid Polynuclear WBC % 4.2 %; Body Fluid Total Cells Counted 1.233 10^3/ul; Red Cell Count/Body Fluid 0.041 10^6/ul; White Blood Count/Body Fluid 1.155 10^3/uL
[2020-08-31 16:07] LABS: LDH,Body Fluid 222 Units/l (Not Establ.)
[2020-08-31] MEDS: Mag Hydrox/Al Hydrox/Simeth 30 ML UDC PO (16:23)
[2020-08-31 16:32] LABS: Glucose, Body Fluid 118 mg/dL (40-70)
--- NOTE | 2020-08-31 16:54 | PCM.PN.HOSP ---
Subjective Subjective Patient reports she has not yet had her thoracentesis done. She has no significant complaints other than some acid reflux and received a phone call during my examination which she took and continued to talk through. Objective Data Objective Data Vital Signs: Vital Signs Temp Pulse Resp BP Pulse Ox 97.6 F L 102 H 18 123/86 H 93 08/31/20 16:30 08/31/20 16:30 08/31/20 16:30 08/31/20 16:30 08/31/20 16:30 Oxygen Flow Rate (L/min) [2] 2 Oxygen Flow Rate (L/min) [1 ( 2 Initial Baseline)] Oxygen Flow Rate (L/min) 2 Oxygen Delivery Method [2] Nasal Cannula Oxygen Delivery Method [1 ( Nasal Cannula Initial Baseline)] Oxygen Delivery Method Room Air Weight: 75.9 kg Body Mass Index (BMI) 30.6 Intake & Output: Intake and Output for Last 24 Hours 08/29/20 08/30/20 08/31/20 23:59 23:59 23:59 Intake Total 850 / 850 1650.33 / 1650.33 639.35 / 639.35 Output Total 1300 / 1300 1550 / 1550 1950 / 1950 Balance -450 / -450 100.33 / 100.33 -1310.65 / -1310.65 Lab / Micro Data Result Diagrams: 08/31/20 04:40 08/31/20 04:40 Labs: Laboratory Results - last 24 hr 08/30/20 08/30/20 08/30/20 16:25 22:22 Unknown WBC RBC Hgb Hct MCV MCH MCHC RDW Std Deviation RDW Coeff of Katie Plt Count MPV Immature Gran % (Auto) Neut % (Auto) Lymph % (Auto) [place] % (Auto) Eos % (Auto) Baso % (Auto) Absolute Neuts (auto) Absolute Lymphs (auto) Nucleated RBC % APTT 70.2 H 66.5 H Sodium Potassium Chloride Carbon Dioxide Anion Gap BUN Creatinine Estim Creat Clear Calc Est GFR (MDRD) Af Amer Est GFR (MDRD) Non-Af BUN/Creatinine Ratio Glucose Calcium Total Bilirubin AST ALT Alkaline Phosphatase Total Protein Albumin Globulin Albumin/Globulin Ratio Fluid WBC Fluid RBC Fluid Tot Cell Count Fld Polynuclear WBCs # Fld Polynuclear WBCs % Fluid Mononuclear WBCs Fld Mononuclear WBCs % Fluid Glucose 118 H Fluid Total Protein 4.0 Fluid LDH 08/31/20 08/31/20 08/31/20 04:40 04:40 04:40 WBC 5.5 RBC 3.67 L Hgb 10.2 L Hct 32.1 L MCV 87.5 MCH 27.8 MCHC 31.8 L RDW Std Deviation 50.1 H RDW Coeff of Katie 16.0 H Plt Count 240 MPV 10.6 Immature Gran % (Auto) 1.400 H Neut % (Auto) 74.3 H Lymph % (Auto) 10.5 L [place] % (Auto) 11.6 H Eos % (Auto) 1.8 Baso % (Auto) 0.4 Absolute Neuts (auto) 4.1 Absolute Lymphs (auto) 0.58 L Nucleated RBC % 0 APTT 72.4 H Sodium 138 Potassium 3.2 L Chloride 99 Carbon Dioxide 32.0 Anion Gap 7 BUN 14 Creatinine 0.62 Estim Creat Clear Calc 40.22 Est GFR (MDRD) Af Amer 120 Est GFR (MDRD) Non-Af 100 BUN/Creatinine Ratio 22.4 H Glucose 111 H Calcium 7.5 L Total Bilirubin 0.60 AST 33 ALT 28 Alkaline Phosphatase 141 H Total Protein 5.6 L Albumin 2.1 L Globulin 3.5 Albumin/Globulin Ratio 0.6 L Fluid WBC Fluid RBC Fluid Tot Cell Count Fld Polynuclear WBCs # Fld Polynuclear WBCs % Fluid Mononuclear WBCs Fld Mononuclear WBCs % Fluid Glucose Fluid Total Protein Fluid LDH 08/31/20 08/31/20 Unknown Unknown WBC RBC Hgb Hct MCV MCH MCHC RDW Std Deviation RDW Coeff of Katie Plt Count MPV Immature Gran % (Auto) Neut % (Auto) Lymph % (Auto) [place] % (Auto) Eos % (Auto) Baso % (Auto) Absolute Neuts (auto) Absolute Lymphs (auto) Nucleated RBC % APTT Sodium Potassium Chloride Carbon Dioxide Anion Gap BUN Creatinine Estim Creat Clear Calc Est GFR (MDRD) Af Amer Est GFR (MDRD) Non-Af BUN/Creatinine Ratio Glucose Calcium Total Bilirubin AST ALT Alkaline Phosphatase Total Protein Albumin Globulin Albumin/Globulin Ratio Fluid WBC 1.155 Fluid RBC 0.041 Fluid Tot Cell Count 1.233 H Fld Polynuclear WBCs # 0.048 Fld Polynuclear WBCs % 4.2 Fluid Mononuclear WBCs 1.107 Fld Mononuclear WBCs % 95.8 Fluid Glucose Fluid Total Protein Fluid LDH 222 Micro: Microbiology 08/30/20 06:15 Urine, Clean Catch Legionella Antigen - Final 08/30/20 06:15 Urine, Clean Catch Streptococcus pneumoniae Antigen (M - Final 08/29/20 13:25 Mucosa - Nose SARS-CoV-2 Antigen (Rapid) - Final Physical Exam Const alert, oriented x3, no apparent distress and average body habitus Constitutional Narrative: Older white female, sitting in bed, appears comfortable, nontoxic Exam Limitations: no limitations HEENT head/scalp atraumatic Head and Scalp: normocephalic Eyes PERRL and EOMs intact bilaterally Neck supple Neck Narrative: Trachea midline, no thrush Resp normal respiratory effort, no retractions and no use of accessory muscles Resp Narrative: Significantly decreased breath sounds at the left base to approximately three quarters of the left lung, few crackles at the right base Auscultation: crackles; Negative for rales, rhonchi or wheezes Cardio regular rate, regular rhythm, S1 normal heart sound, S2 normal heart sound, no murmurs, no rub, no gallops, no clicks and no JVD GI normal to inspection, nondistended, normoactive bowel sounds, soft to palpation, non-tender and non-distended Extremity Extremity Narrative: No clubbing or cyanosis General Extremity: edema Skin no rashes or lesions noted, no wounds, skin turgor normal, no jaundice, no petechiae and no mottling Neuro oriented x3, CN's II-XII intact bilaterally, moves all extremities, no focal motor deficits and no sensory deficits noted Neuro Narrative: Generalized weakness Sensorium / Orientation: awake, alert, oriented to person, oriented to place and oriented to time Psych affect normal Assessment & Plan Assessment/Plan (1) Pulmonary embolism: (2) Acute respiratory failure with hypoxia: (3) Pleural effusion: PLAN: Acute hypoxic respiratory insufficiency secondary to large left pleural effusion/bilateral pulmonary emboli -Diagnostic thoracentesis today -Continue supplemental oxygen but wean as able -Currently on 2 L nasal cannula with oxygen saturation of 97% -Suspect will be able to wean after thoracentesis -Add incentive spirometer -Continue empiric antibiotics -Echocardiogram is pending -Check serum LDH Large left pleural effusion -Diagnostic thoracentesis pending Acute bilateral pulmonary emboli -Continue heparin drip -If no further interventions are needed will consider converting to NOAC if negative for malignancy Mediastinal lymphadenopathy -Concerning for malignancy -May need biopsy -Await thoracentesis results New anemia -Upon review of recent lab patient had a hemoglobin drop from 13.5-11.8 on 08/06/2020 in 1 month. -Hemoglobin today is 10.2 but stable when compared to this admission -Continue to monitor especially with heparin drip -CBC in a.m. Hypokalemia -Replace and recheck in a.m. Unintentional weight loss -See above work-up -Supplementations as able Troponin elevation -Suspect demand ischemia related to PE -Echo pending -Cardiology following-appreciate input CODE STATUS -Full code Charges/Coding Visit Charges Inpatient E&M: 38072 Subs Hosp L2
[2020-08-31 17:20] LABS: Auto B Fluid Analyzer BKGD Ct COUNTS W/IN LIMITS (W/IN LIMITS); Color/Body Fluid SLIGHTLY PINK; Source- Body Fluid THORACENTESIS
[2020-08-31] MEDS: Potassium Chloride Oral Tablet 20 MEQ 40 MEQ PO (17:26)
[2020-08-31 17:48] LABS: Lymphocytes 11 %; Monocytes 82 %; Neutrophil (Segs) 4 %
[2020-08-31 17:49] LABS: Body Fluid QC Type(s) BF2Q; Macrophages 9 %; Mesothelial Cells 4 %
[2020-08-31 17:51] LABS: Appearance/Body Fluid SL CLDY
[2020-08-31] MEDS: Acetaminophen 325 MG Tablet 650 MG PO (21:07)
[2020-08-31] MEDS: Heparin Injection (Vial) 5,000 UNIT/ML VIAL IV (23:07)
[2020-09-01] VITALS (12 sets, daily range): BP systolic 124–146; BP diastolic 78–92; PULSE 88–118; RESP 18; TEMP 36.6–36.8; O2SAT 93–100
[2020-09-01 05:10] LABS: Absolute Lymphocyte Count 0.63 X10^3/uL (0.83-4.51); Absolute Neutrophil Count 4.2 X10^3/uL (2.0-7.7); Basophil# 0.02 X10^3/uL; Basophil% 0.3 % (0-1); Eosinophil# 0.06 X10^3/uL; Hematocrit 34.6 % (37-47); Lymphocyte # 0.63 X10^3/ul (0.83-4.51); Mean Corp Hgb Conc 31.8 g/dL (32-36); Mean Corpuscular Hgb 28.1 pg (27.0-32.0); Mean Corpuscular Volume 88.3 fL (81-99); Mean Platelet Vol. 10.9 fl (6.2-12.0); Monocyte# 0.75 X10^3/uL; Monocyte% 13.1 % (0-10); NRBC Flagged by Analyzer 0 % (0-5); Neutrophil # 4.21 X10^3/uL (2.7-7.7); Neutrophil % 73.4 % (47-70); Platelet Count 265 K/mm3 (150-450); RBC Distribution Width CV 16.3 % (11.6-14.6); RBC Distribution Width SD 50.8 fl (35.1-43.9); Red Blood Count 3.92 M/mm3 (4.2-5.4); White Blood Count 5.7 K/mm3 (4.4-11.0)
[2020-09-01 05:19] LABS: Partial Thromboplast Time 75.5 Seconds (24.1-36.2)
[2020-09-01 05:28] LABS: ALB/GLOB Ratio 0.6 RATIO (0.9-2.4); AST(SGOT) 33 U/L (15-37); Alanine Aminotransfer ALT/SGPT 28 U/L (13-56); Albumin, Serum 2.1 g/dL (3.2-5.0); Alkaline Phosphatase 167 U/L (45-117); Anion Gap 7 (5-15); BUN 13 mg/dL (7-18); BUN/Creat Ratio 19.8 RATIO (10-20); Calcium,Total 8.1 mg/dL (8.5-10.1); Chloride 98 mmol/L (98-107); Creatinine, Serum 0.66 mg/dL (0.55-1.02); EST Glomerular Filtration Rate 94 mL/min (>60); Est Glom Filt Rate - Afr Amer 114 mL/min (>60); Estimated Creatinine Clearance 40.22 ml/min; Globulin 3.6 g/dL (2.2-4.2); Glucose 108 mg/dL (74-106); LDH 318 U/L (84-246); Magnesium 1.9 mg/dL (1.6-2.6); Potassium 3.4 mmol/L (3.5-5.1); Protein, Total 5.7 g/dL (6.4-8.2); Sodium Level 139 mmol/L (136-145)
[2020-09-01] MEDS: Ceftriaxone 1 GM/50 ML BAG IV (08:50)
[2020-09-01] MEDS: Potassium Chloride Oral Tablet 20 MEQ 60 MEQ PO (08:51)
[2020-09-01] MEDS: Furosemide 40 MG/4 ML Vial IV (08:51)
[2020-09-01] MEDS: HEPARIN/D5w 25,000 UNITS 25,000 UNITS/250 ML IV.SOLN. 10 UNITS IV (08:59)
--- NOTE | 2020-09-01 09:16 | CT_ITS ---
STUDY: CT CHEST WITHOUT CONTRAST REASON FOR EXAM: Female, 70 years old. pleural effusion RADIATION DOSAGE (If Supplied By Facility): CTDIvol = ( 11.73 ) mGy, DLP = ( 345.85 ) mGycm TECHNIQUE: Transaxial imaging was performed without the administration of intravenous contrast material. Individualized dose optimization techniques were used for this CT. COMPARISON: 08/29/2020 FINDINGS: There are still noted moderate pleural effusion on the left side minimal pleural effusion on the right. There is atelectasis and/or consolidation left lower lobe. There are multiple well-demarcated masses involving the right cardiophrenic angle the largest measures 3 x 3 cm this is amenable for biopsy or FNA if required.There is a pleural nodule between the ribs in the left side of the chest this measures 2.6 x 2 cm and seen in series CT #2 image 93/99 Otherwise there are no obvious masses seen no pneumothorax identified, there is marked ascites surrounding the liver and spleen. CT/Chest without Contrast IMPRESSION: Bilateral pleural effusion more on the left with some atelectasis and/or consolidation left lower lobe. Well-demarcated nodules. Right costophrenic angle. There is evidence of pleural nodule left chest wall as mentioned Marked ascites Electronically Signed: Lynne Morrow, at 10:47 EDT Tel , Service support ,
--- NOTE | 2020-09-01 09:51 | PCM.PN.INT ---
Assessment & Plan Assessment/Plan (1) Pleural effusion: PLAN: RECOMMENDATIONS: 1. Likely okay to transition to p.o. antibiotics 2. Continue diuretic therapy as tolerated by hemodynamics and renal function. 3. Await culture and cytology from thoracentesis 4. Obtain walking oximetry 5. Potential discharge later today 6. Electrolyte repletion as indicated 7. Encourage incentive spirometer use and mobilize patient as tolerated. IMPRESSIONS: 1. Acute hypoxemic respiratory insufficiency likely secondary to large left pleural effusion Potential etiologies include underlying liver disease, i.e. cirrhosis, infection, CHF or malignancy. It is reasonable to continue empiric antimicrobials for now. Echocardiogram does show a bicuspid mitral valve without significant regurgitation or stenosis. Patient with significant improvement following thoracentesis. Laboratory data is suggestive of an exudate etiology, but this may be secondary to diuresis also. Predominant cell type is monocytic, so low clinical suspicion for empyema or parapneumonic effusion. CT of the chest does not show any obvious masses on my review, but patient still has residual fluid. Given weight loss, malignancy is still a significant concern. Await cytology. Will obtain a walking oximetry. If patient does not require supplemental oxygen, potentially could be discharged and follow-up in our office in 2 weeks to review cytology and possible further interventions. 2. Hypokalemia/hypomagnesemia Additional electrolyte repletion. Recheck levels in the morning. 3. Anemia/unintentional weight loss/troponin elevation Complicates care, management, recovery and prognosis. Await results of echocardiogram. This note was generated with [employer] dictation software. It may contain incorrect words, spelling, and punctuation that were not noted in checking the note before signing. Subjective Subjective Patient did well overnight. No acute issues were reported. Patient reports significant improvement in dyspnea associated with the thoracentesis. Patient has been tolerating room air. No nausea or vomiting has been reported. Objective Data Objective Data Called radiology and they reported that patient had 800 cc removed with thoracentesis. This was red in color. 100 mL was sent for analysis Patient also had a CT scan of the chest without contrast completed after thoracentesis that was personally reviewed. This does not show any obvious mass, but does have some residual small effusion. Vital Signs: Vital Signs Temp Pulse Resp BP Pulse Ox 36.7 C 100 18 137/90 H 94 09/01/20 08:46 09/01/20 08:46 09/01/20 08:46 09/01/20 08:46 09/01/20 08:46 Oxygen Flow Rate (L/min) [2] 2 Oxygen Flow Rate (L/min) [1 ( 2 Initial Baseline)] Oxygen Flow Rate (L/min) 1 Oxygen Delivery Method [2] Nasal Cannula Oxygen Delivery Method [1 ( Nasal Cannula Initial Baseline)] Oxygen Delivery Method Nasal Cannula Weight: 75.9 kg Body Mass Index (BMI) 30.6 Intake & Output: Intake and Output for Last 24 Hours 08/30/20 08/31/20 09/01/20 23:59 23:59 23:59 Intake Total 1650.33 / 1650.33 1018.00 / 1018.00 97.00 / 97.00 Output Total 1550 / 1550 2850 / 2850 100 / 100 Balance 100.33 / 100.33 -1832.00 / -1832.00 -3.00 / -3.00 Lab / Micro Data Result Diagrams: 09/01/20 04:54 09/01/20 04:54 Labs: Laboratory Results - last 24 hr 08/30/20 08/31/20 08/31/20 Unknown 22:26 Unknown WBC RBC Hgb Hct MCV MCH MCHC RDW Std Deviation RDW Coeff of Katie Plt Count MPV Immature Gran % (Auto) Neut % (Auto) Lymph % (Auto) [place] % (Auto) Eos % (Auto) Baso % (Auto) Absolute Neuts (auto) Absolute Lymphs (auto) Nucleated RBC % APTT 54.0 H Sodium Potassium Chloride Carbon Dioxide Anion Gap BUN Creatinine Estim Creat Clear Calc Est GFR (MDRD) Af Amer Est GFR (MDRD) Non-Af BUN/Creatinine Ratio Glucose Calcium Magnesium Total Bilirubin AST ALT Alkaline Phosphatase Lactate Dehydrogenase Total Protein Albumin Globulin Albumin/Globulin Ratio Fluid Source Fluid Color Fluid Appearance Fluid WBC Fluid RBC Fluid Tot Cell Count Fld Polynuclear WBCs # Fld Polynuclear WBCs % Fluid Mononuclear WBCs Fld Mononuclear WBCs % Fluid Neutrophils Fluid Lymphocytes Fluid Monocytes Fluid Macrophages Fld Mesothelial Cells Fl Pathologist Comment Fluid Glucose 118 H Fluid Total Protein 4.0 Fluid LDH 222 Fluid Comment 2 08/31/20 09/01/20 09/01/20 Unknown 04:54 04:54 WBC 5.7 RBC 3.92 L Hgb 11.0 L Hct 34.6 L MCV 88.3 MCH 28.1 MCHC 31.8 L RDW Std Deviation 50.8 H RDW Coeff of Katie 16.3 H Plt Count 265 MPV 10.9 Immature Gran % (Auto) 1.200 H Neut % (Auto) 73.4 H Lymph % (Auto) 11.0 L [place] % (Auto) 13.1 H Eos % (Auto) 1.0 Baso % (Auto) 0.3 Absolute Neuts (auto) 4.2 Absolute Lymphs (auto) 0.63 L Nucleated RBC % 0 APTT Sodium 139 Potassium 3.4 L Chloride 98 Carbon Dioxide 34.0 H Anion Gap 7 BUN 13 Creatinine 0.66 Estim Creat Clear Calc 40.22 Est GFR (MDRD) Af Amer 114 Est GFR (MDRD) Non-Af 94 BUN/Creatinine Ratio 19.8 Glucose 108 H Calcium 8.1 L Magnesium 1.9 Total Bilirubin 0.60 AST 33 ALT 28 Alkaline Phosphatase 167 H Lactate Dehydrogenase 318 H Total Protein 5.7 L Albumin 2.1 L Globulin 3.6 Albumin/Globulin Ratio 0.6 L Fluid Source THORACENTESIS Fluid Color SLIGHTLY PINK Fluid Appearance SL CLDY Fluid WBC 1.155 Fluid RBC 0.041 Fluid Tot Cell Count 1.233 H Fld Polynuclear WBCs # 0.048 Fld Polynuclear WBCs % 4.2 Fluid Mononuclear WBCs 1.107 Fld Mononuclear WBCs % 95.8 Fluid Neutrophils 4 Fluid Lymphocytes 11 Fluid Monocytes 82 Fluid Macrophages 9 Fld Mesothelial Cells 4 Fl Pathologist Comment May follow Fluid Glucose Fluid Total Protein Fluid LDH Fluid Comment 2 SEE COMMENT 09/01/20 04:54 WBC RBC Hgb Hct MCV MCH MCHC RDW Std Deviation RDW Coeff of Katie Plt Count MPV Immature Gran % (Auto) Neut % (Auto) Lymph % (Auto) [place] % (Auto) Eos % (Auto) Baso % (Auto) Absolute Neuts (auto) Absolute Lymphs (auto) Nucleated RBC % APTT 75.5 H Sodium Potassium Chloride Carbon Dioxide Anion Gap BUN Creatinine Estim Creat Clear Calc Est GFR (MDRD) Af Amer Est GFR (MDRD) Non-Af BUN/Creatinine Ratio Glucose Calcium Magnesium Total Bilirubin AST ALT Alkaline Phosphatase Lactate Dehydrogenase Total Protein Albumin Globulin Albumin/Globulin Ratio Fluid Source Fluid Color Fluid Appearance Fluid WBC Fluid RBC Fluid Tot Cell Count Fld Polynuclear WBCs # Fld Polynuclear WBCs % Fluid Mononuclear WBCs Fld Mononuclear WBCs % Fluid Neutrophils Fluid Lymphocytes Fluid Monocytes Fluid Macrophages Fld Mesothelial Cells Fl Pathologist Comment Fluid Glucose Fluid Total Protein Fluid LDH Fluid Comment 2 Micro: Microbiology 08/29/20 18:40 Blood Culture (Wb) - No Site/Description Given Blood Culture - Preliminary No growth in 48 hours. 08/29/20 15:35 Blood Culture (Wb) - Anticubital Right Blood Culture - Preliminary No growth in 48 hours. 08/30/20 06:15 Urine, Clean Catch Legionella Antigen - Final 08/30/20 06:15 Urine, Clean Catch Streptococcus pneumoniae Antigen (M - Final 08/29/20 13:25 Mucosa - Nose SARS-CoV-2 Antigen (Rapid) - Final Physical Exam Const alert, oriented x3 and no apparent distress Constitutional Narrative: Lying in the bed General Appearance: cooperative HEENT normocephalic, head/scalp atraumatic and moist oral mucous membranes Eyes PERRL, EOMs intact bilaterally and conjunctivae normal Neck supple General: trachea midline Resp normal respiratory effort Resp Narrative: Dullness to percussion of the left lung base Effort and Inspection: able to speak in complete sentences Auscultation: rales localized (Right lower lobe) and diminished lung sounds Cardio regular rate and regular rhythm GI normal to inspection, nondistended, normoactive bowel sounds Extremity no clubbing, cyanosis or edema Skin no rashes or lesions noted Neuro CN's II-XII intact bilaterally, moves all extremities and no focal motor deficits Psych cooperative and affect normal Charges/Coding Visit Charges Inpatient E&M: 43782 Subs Hosp L2
--- NOTE | 2020-09-01 11:15 | CASEMGMT ---
Per [facility], they just did start of care for pt on 08/28/20 for SN, PT/OT. Per Jax JOY, pt wasn't even able to stand on own in room at this time to get to chair. John APARICIO aware and into room to speak with pt. Alayna JOY CM
--- NOTE | 2020-09-01 11:24 | PN.CARD_ITS ---
Subjective Subjective Patient seen and evaluated. Appears to be doing better this morning. Objective Data Vital Signs: Vital Signs Temp Pulse Resp BP Pulse Ox 98.0 F 100 18 137/90 H 94 09/01/20 08:46 09/01/20 08:46 09/01/20 08:46 09/01/20 08:46 09/01/20 08:46 Oxygen Flow Rate (L/min) [2] 2 Oxygen Flow Rate (L/min) [1 ( 2 Initial Baseline)] Oxygen Flow Rate (L/min) 1 Oxygen Delivery Method [2] Nasal Cannula Oxygen Delivery Method [1 ( Nasal Cannula Initial Baseline)] Oxygen Delivery Method Nasal Cannula Weight: 167 lb 5.294 oz Body Mass Index (BMI) 30.6 Intake & Output: Intake and Output for Last 24 Hours 08/30/20 08/31/20 09/01/20 23:59 23:59 23:59 Intake Total 1650.33 / 1650.33 1018.00 / 1018.00 402.00 / 402.00 Output Total 1550 / 1550 2850 / 2850 100 / 100 Balance 100.33 / 100.33 -1832.00 / -1832.00 302.00 / 302.00 Lab / Micro Data Result Diagrams: 09/01/20 04:54 09/01/20 04:54 Labs: Laboratory Results - last 24 hr 08/30/20 08/31/20 08/31/20 Unknown 22:26 Unknown WBC RBC Hgb Hct MCV MCH MCHC RDW Std Deviation RDW Coeff of Katie Plt Count MPV Immature Gran % (Auto) Neut % (Auto) Lymph % (Auto) [place] % (Auto) Eos % (Auto) Baso % (Auto) Absolute Neuts (auto) Absolute Lymphs (auto) Nucleated RBC % APTT 54.0 H Sodium Potassium Chloride Carbon Dioxide Anion Gap BUN Creatinine Estim Creat Clear Calc Est GFR (MDRD) Af Amer Est GFR (MDRD) Non-Af BUN/Creatinine Ratio Glucose Calcium Magnesium Total Bilirubin AST ALT Alkaline Phosphatase Lactate Dehydrogenase Total Protein Albumin Globulin Albumin/Globulin Ratio Fluid Source Fluid Color Fluid Appearance Fluid WBC Fluid RBC Fluid Tot Cell Count Fld Polynuclear WBCs # Fld Polynuclear WBCs % Fluid Mononuclear WBCs Fld Mononuclear WBCs % Fluid Neutrophils Fluid Lymphocytes Fluid Monocytes Fluid Macrophages Fld Mesothelial Cells Fl Pathologist Comment Fluid Glucose 118 H Fluid Total Protein 4.0 Fluid LDH 222 Fluid Comment 2 08/31/20 09/01/20 09/01/20 Unknown 04:54 04:54 WBC 5.7 RBC 3.92 L Hgb 11.0 L Hct 34.6 L MCV 88.3 MCH 28.1 MCHC 31.8 L RDW Std Deviation 50.8 H RDW Coeff of Katie 16.3 H Plt Count 265 MPV 10.9 Immature Gran % (Auto) 1.200 H Neut % (Auto) 73.4 H Lymph % (Auto) 11.0 L [place] % (Auto) 13.1 H Eos % (Auto) 1.0 Baso % (Auto) 0.3 Absolute Neuts (auto) 4.2 Absolute Lymphs (auto) 0.63 L Nucleated RBC % 0 APTT Sodium 139 Potassium 3.4 L Chloride 98 Carbon Dioxide 34.0 H Anion Gap 7 BUN 13 Creatinine 0.66 Estim Creat Clear Calc 40.22 Est GFR (MDRD) Af Amer 114 Est GFR (MDRD) Non-Af 94 BUN/Creatinine Ratio 19.8 Glucose 108 H Calcium 8.1 L Magnesium 1.9 Total Bilirubin 0.60 AST 33 ALT 28 Alkaline Phosphatase 167 H Lactate Dehydrogenase 318 H Total Protein 5.7 L Albumin 2.1 L Globulin 3.6 Albumin/Globulin Ratio 0.6 L Fluid Source THORACENTESIS Fluid Color SLIGHTLY PINK Fluid Appearance SL CLDY Fluid WBC 1.155 Fluid RBC 0.041 Fluid Tot Cell Count 1.233 H Fld Polynuclear WBCs # 0.048 Fld Polynuclear WBCs % 4.2 Fluid Mononuclear WBCs 1.107 Fld Mononuclear WBCs % 95.8 Fluid Neutrophils 4 Fluid Lymphocytes 11 Fluid Monocytes 82 Fluid Macrophages 9 Fld Mesothelial Cells 4 Fl Pathologist Comment May follow Fluid Glucose Fluid Total Protein Fluid LDH Fluid Comment 2 SEE COMMENT 09/01/20 04:54 WBC RBC Hgb Hct MCV MCH MCHC RDW Std Deviation RDW Coeff of Katie Plt Count MPV Immature Gran % (Auto) Neut % (Auto) Lymph % (Auto) [place] % (Auto) Eos % (Auto) Baso % (Auto) Absolute Neuts (auto) Absolute Lymphs (auto) Nucleated RBC % APTT 75.5 H Sodium Potassium Chloride Carbon Dioxide Anion Gap BUN Creatinine Estim Creat Clear Calc Est GFR (MDRD) Af Amer Est GFR (MDRD) Non-Af BUN/Creatinine Ratio Glucose Calcium Magnesium Total Bilirubin AST ALT Alkaline Phosphatase Lactate Dehydrogenase Total Protein Albumin Globulin Albumin/Globulin Ratio Fluid Source Fluid Color Fluid Appearance Fluid WBC Fluid RBC Fluid Tot Cell Count Fld Polynuclear WBCs # Fld Polynuclear WBCs % Fluid Mononuclear WBCs Fld Mononuclear WBCs % Fluid Neutrophils Fluid Lymphocytes Fluid Monocytes Fluid Macrophages Fld Mesothelial Cells Fl Pathologist Comment Fluid Glucose Fluid Total Protein Fluid LDH Fluid Comment 2 Micro: Microbiology 08/29/20 18:40 Blood Culture (Wb) - No Site/Description Given Blood Culture - Preliminary No growth in 48 hours. 08/29/20 15:35 Blood Culture (Wb) - Anticubital Right Blood Culture - Preliminary No growth in 48 hours. 08/30/20 06:15 Urine, Clean Catch Legionella Antigen - Final 08/30/20 06:15 Urine, Clean Catch Streptococcus pneumoniae Antigen (M - Final 08/29/20 13:25 Mucosa - Nose SARS-CoV-2 Antigen (Rapid) - Final Cardiology Labs/Tests 08/31/20 22:26: APTT 54.0 H 09/01/20 04:54: WBC 5.7, RBC 3.92 L, Hgb 11.0 L, Hct 34.6 L, MCV 88.3, MCH 28.1, MCHC 31.8 L, Plt Count 265, MPV 10.9, Immature Gran % (Auto) 1.200 H, Neut % (Auto) 73.4 H, Lymph % (Auto) 11.0 L, [place] % (Auto) 13.1 H, Eos % (Auto) 1.0, Baso % (Auto) 0.3, Absolute Neuts (auto) 4.2, Nucleated RBC % 0 09/01/20 04:54: Sodium 139, Potassium 3.4 L, Chloride 98, Carbon Dioxide 34.0 H, Anion Gap 7, BUN 13, Creatinine 0.66, Est GFR (MDRD) Af Amer 114, Est GFR (MDRD) Non-Af 94, BUN/Creatinine Ratio 19.8, Glucose 108 H, Calcium 8.1 L, Magnesium 1.9, Total Bilirubin 0.60 09/01/20 04:54: APTT 75.5 H Rhythm: EKG: ECHO: Stress Test: Cardiac Cath: PCI: CT Surgery: Holter monitor: EPS: PPM: CXR: Chest CT Scan: Radiography Diagnostic Testing: Radiology Impression Chest CT 09/01/20 09:16 IMPRESSION: Bilateral pleural effusion more on the left with some atelectasis and/or consolidation left lower lobe. Well-demarcated nodules. Right costophrenic angle. There is evidence of pleural nodule left chest wall as mentioned Marked ascites Electronically Signed: Lynne Morrow, at 10:47 EDT Tel , Service support , Physical Exam Const oriented x3 and healthy appearing Orientation / Consciousness: awake HEENT normocephalic Eyes PERRL and conjunctivae normal Neck supple, no JVD and no carotid bruits Chest inspection of chest normal Chest: other Reduced air entry left chest Cardio Palpation: normal PMI Rate: regular rate Rhythm: regular rhythm Heart Sounds: S1 normal and S2 normal Peripheral Pulses: pulses 2+ throughout GI normal to inspection, nondistended, normoactive bowel sounds Extremity normal to inspection and no clubbing, cyanosis or edema Psych mental status grossly normal Assessment & Plan Assessment/Plan (1) Elevated troponin: PLAN: She does have a mildly elevated troponin. It appears that the above is likely secondary to demand ischemia and or the pulmonary embolism. I would like us to obtain an echocardiogram to assess the left ventricular function. At this particular time I would not suggest any further cardiac work-up. (2) Hypertension: PLAN: She does have a history of hypertension which appears to be well controlled at this particular time. I would not make any other major changes. (3) Pulmonary embolism: PLAN: It appears that she has a recent evidence of pulmonary embolism. She also has mediastinal nodes and therefore needs to be worked up for a malignancy. Depending on the findings further recommendations will be made. The patient is currently on intravenous heparin. Would defer to the hospitalist for further therapy.
--- NOTE | 2020-09-01 11:31 | CASEMGMT ---
Addendum entered by Mandi Jimenez 09/01/20 13:49: ALESSANDRA received a return call from Alayna at [facility] and they can take patient. She started the pre-cert. SW notified patient and she was pleased. SW also called patient's niece and let her know. She asked if the nurse or doctor could call her and updated her. ALESSANDRA told her SW will see if someone can call her with an update. SW messaged physician. Plan: d/c to [facility] pending insurance approval. Mandi JEFF Original Note: SW met with patient. Introduced self and role at [facility]. SW discussed with patient that she did not do well when trying to walk. SW talked about going somewhere short term for rehab. She was in agreement and asked SW to please call her niece to figure out where. SW called patient's niece and let her know above. SW went over the facilities that are in network with patient's insurance. She said she would prefer [facility] since she lives in [place] and [facility] is on her way home from work. ALESSANDRA faxed referral to [facility] and also called Alayna in admissions. Await response. Will also need insurance authorization. Mandi JEFF
[2020-09-01 11:43] LABS: Partial Thromboplast Time 54.5 Seconds (24.1-36.2)
[2020-09-01] MEDS: Heparin Injection (Vial) 5,000 UNIT/ML VIAL IV (12:07)
--- NOTE | 2020-09-01 12:40 | CASEMGMT ---
Message left with Leda at [facility] to notify that pt's plan is for [facility] assisted at this time. Alayna JOY CM
--- NOTE | 2020-09-01 14:23 | PCM.PN.HOSP ---
Subjective Subjective Patient notes she is breathing much more easily today. Initially had a conversation with her where she refused to go to a facility despite recommendations for further rehab at discharge. She reluctantly is willing to go to SNF now and plans for discharge are to [facility] once we have insurance approval. Objective Data Objective Data Vital Signs: Vital Signs Temp Pulse Resp BP Pulse Ox 98.0 F 100 18 137/90 H 94 09/01/20 08:46 09/01/20 08:46 09/01/20 08:46 09/01/20 08:46 09/01/20 08:46 Oxygen Flow Rate (L/min) [2] 2 Oxygen Flow Rate (L/min) [1 ( 2 Initial Baseline)] Oxygen Flow Rate (L/min) 1 Oxygen Delivery Method [2] Nasal Cannula Oxygen Delivery Method [1 ( Nasal Cannula Initial Baseline)] Oxygen Delivery Method Nasal Cannula Weight: 75.9 kg Body Mass Index (BMI) 30.6 Intake & Output: Intake and Output for Last 24 Hours 08/30/20 08/31/20 09/01/20 23:59 23:59 23:59 Intake Total 1650.33 / 1650.33 1018.00 / 1018.00 433.83 / 433.83 Output Total 1550 / 1550 2850 / 2850 100 / 100 Balance 100.33 / 100.33 -1832.00 / -1832.00 333.83 / 333.83 Lab / Micro Data Result Diagrams: 09/01/20 04:54 09/01/20 04:54 Labs: Laboratory Results - last 24 hr 08/30/20 08/31/20 08/31/20 Unknown 22:26 Unknown WBC RBC Hgb Hct MCV MCH MCHC RDW Std Deviation RDW Coeff of Katie Plt Count MPV Immature Gran % (Auto) Neut % (Auto) Lymph % (Auto) [place] % (Auto) Eos % (Auto) Baso % (Auto) Absolute Neuts (auto) Absolute Lymphs (auto) Nucleated RBC % APTT 54.0 H Sodium Potassium Chloride Carbon Dioxide Anion Gap BUN Creatinine Estim Creat Clear Calc Est GFR (MDRD) Af Amer Est GFR (MDRD) Non-Af BUN/Creatinine Ratio Glucose Calcium Magnesium Total Bilirubin AST ALT Alkaline Phosphatase Lactate Dehydrogenase Total Protein Albumin Globulin Albumin/Globulin Ratio Fluid Source Fluid Color Fluid Appearance Fluid WBC Fluid RBC Fluid Tot Cell Count Fld Polynuclear WBCs # Fld Polynuclear WBCs % Fluid Mononuclear WBCs Fld Mononuclear WBCs % Fluid Neutrophils Fluid Lymphocytes Fluid Monocytes Fluid Macrophages Fld Mesothelial Cells Fl Pathologist Comment Fluid Glucose 118 H Fluid Total Protein 4.0 Fluid LDH 222 Fluid Comment 2 08/31/20 09/01/20 09/01/20 Unknown 04:54 04:54 WBC 5.7 RBC 3.92 L Hgb 11.0 L Hct 34.6 L MCV 88.3 MCH 28.1 MCHC 31.8 L RDW Std Deviation 50.8 H RDW Coeff of Katie 16.3 H Plt Count 265 MPV 10.9 Immature Gran % (Auto) 1.200 H Neut % (Auto) 73.4 H Lymph % (Auto) 11.0 L [place] % (Auto) 13.1 H Eos % (Auto) 1.0 Baso % (Auto) 0.3 Absolute Neuts (auto) 4.2 Absolute Lymphs (auto) 0.63 L Nucleated RBC % 0 APTT Sodium 139 Potassium 3.4 L Chloride 98 Carbon Dioxide 34.0 H Anion Gap 7 BUN 13 Creatinine 0.66 Estim Creat Clear Calc 40.22 Est GFR (MDRD) Af Amer 114 Est GFR (MDRD) Non-Af 94 BUN/Creatinine Ratio 19.8 Glucose 108 H Calcium 8.1 L Magnesium 1.9 Total Bilirubin 0.60 AST 33 ALT 28 Alkaline Phosphatase 167 H Lactate Dehydrogenase 318 H Total Protein 5.7 L Albumin 2.1 L Globulin 3.6 Albumin/Globulin Ratio 0.6 L Fluid Source THORACENTESIS Fluid Color SLIGHTLY PINK Fluid Appearance SL CLDY Fluid WBC 1.155 Fluid RBC 0.041 Fluid Tot Cell Count 1.233 H Fld Polynuclear WBCs # 0.048 Fld Polynuclear WBCs % 4.2 Fluid Mononuclear WBCs 1.107 Fld Mononuclear WBCs % 95.8 Fluid Neutrophils 4 Fluid Lymphocytes 11 Fluid Monocytes 82 Fluid Macrophages 9 Fld Mesothelial Cells 4 Fl Pathologist Comment May follow Fluid Glucose Fluid Total Protein Fluid LDH Fluid Comment 2 SEE COMMENT 09/01/20 09/01/20 04:54 11:16 WBC RBC Hgb Hct MCV MCH MCHC RDW Std Deviation RDW Coeff of Katie Plt Count MPV Immature Gran % (Auto) Neut % (Auto) Lymph % (Auto) [place] % (Auto) Eos % (Auto) Baso % (Auto) Absolute Neuts (auto) Absolute Lymphs (auto) Nucleated RBC % APTT 75.5 H 54.5 H Sodium Potassium Chloride Carbon Dioxide Anion Gap BUN Creatinine Estim Creat Clear Calc Est GFR (MDRD) Af Amer Est GFR (MDRD) Non-Af BUN/Creatinine Ratio Glucose Calcium Magnesium Total Bilirubin AST ALT Alkaline Phosphatase Lactate Dehydrogenase Total Protein Albumin Globulin Albumin/Globulin Ratio Fluid Source Fluid Color Fluid Appearance Fluid WBC Fluid RBC Fluid Tot Cell Count Fld Polynuclear WBCs # Fld Polynuclear WBCs % Fluid Mononuclear WBCs Fld Mononuclear WBCs % Fluid Neutrophils Fluid Lymphocytes Fluid Monocytes Fluid Macrophages Fld Mesothelial Cells Fl Pathologist Comment Fluid Glucose Fluid Total Protein Fluid LDH Fluid Comment 2 Micro: Microbiology 08/29/20 18:40 Blood Culture (Wb) - No Site/Description Given Blood Culture - Preliminary No growth in 48 hours. 08/29/20 15:35 Blood Culture (Wb) - Anticubital Right Blood Culture - Preliminary No growth in 48 hours. 08/30/20 06:15 Urine, Clean Catch Legionella Antigen - Final 08/30/20 06:15 Urine, Clean Catch Streptococcus pneumoniae Antigen (M - Final 08/29/20 13:25 Mucosa - Nose SARS-CoV-2 Antigen (Rapid) - Final Radiography Diagnostic Testing: Radiology Impression Echocardiogram 08/31/20 07:00 Interpretation Summary The study was technically difficult. Left ventricular systolic function is normal. The estimated ejection fraction is 60 %. The left atrium is moderately enlarged. Mild (1+) mitral valve insufficiency. Trivial tricuspid valve insufficiency. Right ventricular systolic pressure estimated to be 44 mmHg. Diastolic function is indeterminate. Ordering Physician: Luz Stafford Referring Physician: MARTIN MITTAL Performed By: Anitra Art RDCS Chest CT 06/22/21 09:16 IMPRESSION: Bilateral pleural effusion more on the left with some atelectasis and/or consolidation left lower lobe. Well-demarcated nodules. Right costophrenic angle. There is evidence of pleural nodule left chest wall as mentioned Marked ascites Electronically Signed: Lynne Morrow, at 10:47 EDT Tel , Service support , Physical Exam Const alert, oriented x3 and no apparent distress Constitutional Narrative: Older white female lying in bed, appears comfortable, watching television, nontoxic Exam Limitations: no limitations HEENT head/scalp atraumatic Head and Scalp: normocephalic Eyes PERRL and EOMs intact bilaterally Resp normal respiratory effort, no retractions and no use of accessory muscles Resp Narrative: Diminished at left base and slightly diminished at right base, few crackles at right base Auscultation: crackles; Negative for rales, rhonchi or wheezes Cardio regular rhythm, S1 normal heart sound, S2 normal heart sound, no murmurs, no rub, no gallops, no clicks and no JVD Cardio Narrative: Mild tachycardia GI normal to inspection, nondistended, normoactive bowel sounds, soft to palpation, non-tender and non-distended GI Narrative: No significant fluid wave Extremity Extremity Narrative: Trace bilateral lower extremity edema, no cyanosis or clubbing General Extremity: edema Peripheral Pulses: Yes pulses 2+ throughout Skin no wounds, skin turgor normal, no jaundice, no petechiae and no mottling Skin Narrative: Ecchymosis left lower extremity status post fall, tender in this area, small scratches that appear to be healing well Neuro oriented x3, CN's II-XII intact bilaterally, moves all extremities and no focal motor deficits Neuro Narrative: Significant generalized weakness bilateral lower extremities Sensorium / Orientation: awake, alert, oriented to person, oriented to place and oriented to time Speech: speech normal Psych Psych Narrative: Labile emotionally Assessment & Plan Assessment/Plan (1) Acute respiratory failure with hypoxia: (2) Pulmonary embolism: (3) Pleural effusion: PLAN: Acute hypoxic respiratory insufficiency secondary to large left pleural effusion/bilateral pulmonary emboli -Diagnostic thoracentesis today -Continue supplemental oxygen but wean as able -Patient is currently on room air with an SPO2 of 94% -Add incentive spirometer -Continue empiric antibiotics -Echocardiogram shows an EF of 60%, moderate left atrial argument, moderate right ventricular systolic pressure elevation at 44 mmHg, -Effusion is exudative per Light's criteria Large left pleural effusion -Appears to be exudative -Pathology is pending -Concern for reaccumulation -800 cc removed -Continue Lasix but discontinue IV and switch to 40 mg p.o. twice daily Acute bilateral pulmonary emboli -With concern for malignancy and potential for future procedures will start Lovenox one mg per kg twice daily -Discontinue heparin drip Mediastinal lymphadenopathy -Concerning for malignancy -May need biopsy via EBUS -Await thoracentesis results for pathology Liver cirrhosis -Nodular liver and Small amount of ascites on abdominal ultrasound from 08/20/2020 -Small bilateral effusions noted at that time -Suspect related to Pandya -Depending on pathology will need to consider CT of the abdomen and pelvis without contrast New anemia -Upon review of recent lab patient had a hemoglobin drop from 13.5-11.8 on 08/06/2020 in 1 month. -Hemoglobin today is 10.2 but stable when compared to this admission -Continue to monitor especially with heparin drip -CBC in a.m. Hypokalemia -Improved but still hypokalemic -Suspect related to significant diuresis -40 mEq p.o. potassium -Repeat in a.m. Hypertension -Start metoprolol 25 mg twice daily -This will also help with her mild tachycardia which is likely related to her pulmonary embolism Unintentional weight loss -See above work-up -Supplementations as able Troponin elevation -Suspect demand ischemia related to PE -Echo pending -Cardiology following-appreciate input CODE STATUS -Full code Charges/Coding Visit Charges Inpatient E&M: 67595 Subs Hosp L3
[2020-09-01] MEDS: Enoxaparin 80 MG/0.8 ML Syringe SC ×2 (15:08→20:45)
--- NOTE | 2020-09-01 16:57 | CHAPLAIN ---
Type of Pastoral Visit _x__ Initial Visit ___ Follow-up Visit ___ On-call Visit ___ General Patient Visit ___ Spiritual Assessment ___ Family Conference ___ Bereavement ___ Rapid Response ___ Code Blue ___ Other (describe below) Pastoral Care Referral From ___ Patient ___ Family _x__ Nurse ___ Physician ___ Drum Puller ___ Professor Of Nursing ___ Other (describe below) Sacrament/Intervention _x__ Active listening ___ Anointing ___ Religious ___ Bereavement ___ Communion ___ Shannon exploration ___ ___ Life review _x__ Prayer ___ Reconciliation ___ Sacrament of Sick _x__ Supportive presence ___ Wedding ___ Other (describe below) Pastoral Comments
[2020-09-01] MEDS: Furosemide 40 MG Tablet PO (18:18)
[2020-09-01] MEDS: Metoprolol Tartrate 25 MG Tablet PO (20:45)
[2020-09-02] VITALS (8 sets, daily range): BP systolic 96–119; BP diastolic 47–82; PULSE 86–114; RESP 16–18; TEMP 36.7; O2SAT 90–99
[2020-09-02 06:00] LABS: Absolute Lymphocyte Count 0.64 X10^3/uL (0.83-4.51); Absolute Neutrophil Count 4.9 X10^3/uL (2.0-7.7); Basophil# 0.02 X10^3/uL; Basophil% 0.3 % (0-1); Eosinophil# 0.02 X10^3/uL; Eosinophils% 0.3 % (0-5); Hematocrit 36.8 % (37-47); Hemoglobin 11.5 g/dL (12.0-15.0); Lymphocyte # 0.64 X10^3/ul (0.83-4.51); Lymphocyte % 9.8 % (19-41); Mean Corp Hgb Conc 31.3 g/dL (32-36); Mean Corpuscular Hgb 27.6 pg (27.0-32.0); Mean Corpuscular Volume 88.5 fL (81-99); Mean Platelet Vol. 10.7 fl (6.2-12.0); Monocyte# 0.84 X10^3/uL; Monocyte% 12.9 % (0-10); NRBC Flagged by Analyzer 0 % (0-5); Neutrophil # 4.93 X10^3/uL (2.7-7.7); Neutrophil % 75.5 % (47-70); Platelet Count 288 K/mm3 (150-450); RBC Distribution Width CV 16.5 % (11.6-14.6); RBC Distribution Width SD 52.5 fl (35.1-43.9); Red Blood Count 4.16 M/mm3 (4.2-5.4); White Blood Count 6.5 K/mm3 (4.4-11.0)
--- NOTE | 2020-09-02 06:00 | CT_ITS ---
STUDY: CT ABDOMEN AND PELVIS WITH CONTRAST REASON FOR EXAM: Female, 70 years old. Cirrhosis RADIATION DOSAGE (If Supplied By Facility): CTDIvol = ( 17.42 ) mGy, DLP = ( 962.70 ) mGycm TECHNIQUE: Transaxial images were obtained from the dome of the diaphragm to the symphysis pubis without oral contrast. IV 100mL Isovue-300 was administered. Sagittal and coronal images were reconstructed. Individualized dose optimization techniques were used for this CT. COMPARISON: 02/26/2014. FINDINGS: Bilateral pleural effusion more on the left with some atelectasis and/or consolidation involving the left lower lobe. The liver is not enlarged but there are multiple hypodense lesions involving both lobes of the liver consistent with metastases. Marked ascites is seen. The spleen is not enlarged. The suprarenal glands and both kidneys are normal in size, shape and position no hydronephrosis or stone formation. Bilateral necrotic adnexal lesions seen, the one on the left measures about 6.1 x 4.8 mm the right measures 3.9 x 2.9 cm some soft tissue component seen in the right side of the abdomen that contains calcification felt to represent peritoneal deposits. There is marked of fluid within the pelvis as well. The uterus is barely seen and atrophic. All the above findings are new since the last study of February 2014 CT/Abdomen/Pelvis WITH Contrast IMPRESSION: Liver metastases, marked ascites. Necrotic adnexal lesions with peritoneal deposits in the right side of the abdomen. Electronically Signed: Ericajoyce Cristhian, at 10:53 EDT Tel , Service support ,
[2020-09-02 06:28] LABS: ALB/GLOB Ratio 0.5 RATIO (0.9-2.4); AST(SGOT) 38 U/L (15-37); Alanine Aminotransfer ALT/SGPT 31 U/L (13-56); Albumin, Serum 2.1 g/dL (3.2-5.0); Alkaline Phosphatase 202 U/L (45-117); Anion Gap 5 (5-15); BUN 15 mg/dL (7-18); Calcium,Total 8.7 mg/dL (8.5-10.1); Chloride 100 mmol/L (98-107); Creatinine, Serum 0.84 mg/dL (0.55-1.02); EST Glomerular Filtration Rate 71 mL/min (>60); Est Glom Filt Rate - Afr Amer 86 mL/min (>60); Estimated Creatinine Clearance 47.88 ml/min; Globulin 3.9 g/dL (2.2-4.2); Glucose 107 mg/dL (74-106); Potassium 4.1 mmol/L (3.5-5.1); Sodium Level 138 mmol/L (136-145)
[2020-09-02] MEDS: Furosemide 40 MG Tablet PO (09:11)
[2020-09-02] MEDS: Enoxaparin 80 MG/0.8 ML Syringe SC (09:11)
[2020-09-02] MEDS: Metoprolol Tartrate 25 MG Tablet PO (09:11)
[2020-09-02] MEDS: Ceftriaxone 1 GM/50 ML BAG IV (09:27)
[2020-09-02] MEDS: 0.9% Saline Lock 10 ML Syringe IV (09:27)
--- NOTE | 2020-09-02 09:44 | PCM.PN.INT ---
Assessment & Plan Assessment/Plan (1) Pleural effusion: PLAN: RECOMMENDATIONS: 1. Likely okay to transition to p.o. antibiotics 2. Continue diuretic therapy as tolerated by hemodynamics and renal function. 3. Await culture and cytology from thoracentesis. Can follow-up as an outpatient 4. Obtain walking oximetry prior to discharge 5. Potential discharge later today 6. Electrolyte repletion as indicated 7. Encourage incentive spirometer use and mobilize patient as tolerated. IMPRESSIONS: 1. Acute hypoxemic respiratory insufficiency likely secondary to large left pleural effusion Potential etiologies include underlying liver disease, i.e. cirrhosis, infection, CHF or malignancy. It is reasonable to continue empiric antimicrobials for now. Echocardiogram does show a bicuspid mitral valve without significant regurgitation or stenosis. Patient with significant improvement following thoracentesis. Laboratory data is suggestive of an exudate etiology, but this may be secondary to diuresis also. Predominant cell type is monocytic, so low clinical suspicion for empyema or parapneumonic effusion. CT of the abdomen shows significant ascites. Await formal read. Clinical suspicion is pleural effusion will reaccumulate if ascites remains present. Patient can follow-up as an outpatient on cytology and culture results. Low clinical suspicion for parapneumonic versus empyema given chemistries. 2. Hypokalemia/hypomagnesemia Additional electrolyte repletion. Recheck levels in the morning. 3. Anemia/unintentional weight loss/troponin elevation Complicates care, management, recovery and prognosis. Await results of echocardiogram. This note was generated with [employer] dictation software. It may contain incorrect words, spelling, and punctuation that were not noted in checking the note before signing. Subjective Subjective Patient did well overnight. Patient is not reporting any respiratory complaints at this time. Patient still has some shortness of breath on exertion and feels that low-dose supplemental oxygen is helpful. Objective Data Objective Data Vital Signs: Vital Signs Temp Pulse Resp BP Pulse Ox 36.7 C 112 H 18 119/82 H 96 09/02/20 08:53 09/02/20 09:11 09/02/20 08:53 09/02/20 08:53 09/02/20 08:53 Oxygen Flow Rate (L/min) [2] 2 Oxygen Flow Rate (L/min) [1 ( 2 Initial Baseline)] Oxygen Flow Rate (L/min) 2 Oxygen Delivery Method [2] Nasal Cannula Oxygen Delivery Method [1 ( Nasal Cannula Initial Baseline)] Oxygen Delivery Method Room Air Weight: 75.9 kg Body Mass Index (BMI) 30.6 Intake & Output: Intake and Output for Last 24 Hours 08/31/20 09/01/20 09/02/20 23:59 23:59 23:59 Intake Total 1018.00 / 1018.00 706.65 / 906.65 400 / 400 Output Total 2850 / 2850 775 / 775 200 / 200 Balance -1832.00 / -1832.00 -68.35 / 131.65 200 / 200 Lab / Micro Data Result Diagrams: 09/02/20 05:52 09/02/20 05:52 Labs: Laboratory Results - last 24 hr 09/01/20 09/02/20 09/02/20 11:16 05:52 05:52 WBC 6.5 RBC 4.16 L Hgb 11.5 L Hct 36.8 L MCV 88.5 MCH 27.6 MCHC 31.3 L RDW Std Deviation 52.5 H RDW Coeff of Katie 16.5 H Plt Count 288 MPV 10.7 Immature Gran % (Auto) 1.200 H Neut % (Auto) 75.5 H Lymph % (Auto) 9.8 L [place] % (Auto) 12.9 H Eos % (Auto) 0.3 Baso % (Auto) 0.3 Absolute Neuts (auto) 4.9 Absolute Lymphs (auto) 0.64 L Nucleated RBC % 0 APTT 54.5 H Sodium 138 Potassium 4.1 Chloride 100 Carbon Dioxide 33.0 H Anion Gap 5 BUN 15 Creatinine 0.84 Estim Creat Clear Calc 47.88 Est GFR (MDRD) Af Amer 86 Est GFR (MDRD) Non-Af 71 BUN/Creatinine Ratio 18.0 Glucose 107 H Calcium 8.7 Total Bilirubin 0.50 AST 38 H ALT 31 Alkaline Phosphatase 202 H Ammonia Total Protein 6.0 L Albumin 2.1 L Globulin 3.9 Albumin/Globulin Ratio 0.5 L 09/02/20 05:52 WBC RBC Hgb Hct MCV MCH MCHC RDW Std Deviation RDW Coeff of Katie Plt Count MPV Immature Gran % (Auto) Neut % (Auto) Lymph % (Auto) [place] % (Auto) Eos % (Auto) Baso % (Auto) Absolute Neuts (auto) Absolute Lymphs (auto) Nucleated RBC % APTT Sodium Potassium Chloride Carbon Dioxide Anion Gap BUN Creatinine Estim Creat Clear Calc Est GFR (MDRD) Af Amer Est GFR (MDRD) Non-Af BUN/Creatinine Ratio Glucose Calcium Total Bilirubin AST ALT Alkaline Phosphatase Ammonia 18.0 Total Protein Albumin Globulin Albumin/Globulin Ratio Micro: Microbiology 08/29/20 18:40 Blood Culture (Wb) - No Site/Description Given Blood Culture - Preliminary No growth in 48 hours. 08/29/20 15:35 Blood Culture (Wb) - Anticubital Right Blood Culture - Preliminary No growth in 48 hours. 08/30/20 06:15 Urine, Clean Catch Legionella Antigen - Final 08/30/20 06:15 Urine, Clean Catch Streptococcus pneumoniae Antigen (M - Final 08/29/20 13:25 Mucosa - Nose SARS-CoV-2 Antigen (Rapid) - Final Radiography Diagnostic Testing: Radiology Impression Echocardiogram 08/31/20 07:00 Interpretation Summary The study was technically difficult. Left ventricular systolic function is normal. The estimated ejection fraction is 60 %. The left atrium is moderately enlarged. Mild (1+) mitral valve insufficiency. Trivial tricuspid valve insufficiency. Right ventricular systolic pressure estimated to be 44 mmHg. Diastolic function is indeterminate. Ordering Physician: Luz Stafford Referring Physician: MARTIN MITTAL Performed By: Anitra Art, VLAD Chest CT 09/01/20 09:16 IMPRESSION: Bilateral pleural effusion more on the left with some atelectasis and/or consolidation left lower lobe. Well-demarcated nodules. Right costophrenic angle. There is evidence of pleural nodule left chest wall as mentioned Marked ascites Electronically Signed: Lynne Morrow, at 10:47 EDT Tel , Service support , Physical Exam Const oriented x3 and no apparent distress Constitutional Narrative: Lying in the bed General Appearance: frail; Negative for in distress HEENT normocephalic and head/scalp atraumatic; Negative for moist oral mucous membranes Eyes PERRL, EOMs intact bilaterally and conjunctivae normal Neck full ROM General: trachea midline Lymph Lymphatic: no lymphadenopathy noted Resp normal respiratory effort and no use of accessory muscles Resp Narrative: Dullness to percussion of the left lung base Effort and Inspection: able to speak in complete sentences Auscultation: clear to auscultation bilaterally; Negative for rales, rhonchi or wheezes Cardio S1 normal heart sound, S2 normal heart sound, no murmurs, no rub, no gallops and no JVD Rate: tachycardic Rhythm: abnormal rhythm irregularly irregular GI normal to inspection, nondistended, normoactive bowel sounds Extremity no clubbing, cyanosis or edema Skin no rashes or lesions noted Neuro oriented x3 and CN's II-XII intact bilaterally Psych cooperative and affect normal Charges/Coding Visit Charges Inpatient E&M: 53486 Subs Hosp L2
--- NOTE | 2020-09-02 10:12 | CASEMGMT ---
ALESSANDRA received a call from Alayna at [facility] and patient was approved. ALESSANDRA notified physician and RN. ALESSANDRA will notify patient and niece once orders are received and transport is set up. Mandi JEFF
--- NOTE | 2020-09-02 12:20 | DS.PCM_ITS ---
Providers Date of Admission: 08/29/20 Primary Care Physician: Dr. Tiago Alonzo MD Consultations 08/29/20 14:10 Consult: Cardiology Routine Consulting Provider: Sundeep Lawton Reason for Consult: elevated troponin EMERGENT Consult: No Notified: Yes Date Notified: 08/29/20 Time Notified: 14:13 Method of Notification: Text Consult: Safety Scientist / Pulmonary Medicine Routine Consulting Provider: [facility] Reason for Consult: left pleural effusion EMERGENT Consult: No Notified: Yes Date Notified: 08/29/20 Time Notified: 14:14 Method of Notification: Text Reason For Visit: LEFT PLEURAL EFFUSION, NONSTEMI Diagnosis Discharge Diagnosis (1) Pleural effusion: Status: Acute Code(s): J90 - Pleural effusion, not elsewhere classified Medications at Discharge Home Medications multivitamin 1 tab PO DAILY 08/29/20 acetaminophen [Tylenol] 650 mg PO Q4H PRN PRN #0 tab 09/02/20 albuterol sulfate 2.5 mg INHALATION Q2H PRN PRN #0 ml 09/02/20 enoxaparin 80 mg SUBCUT Q12 #0 ml 09/02/20 furosemide 40 mg PO BIDLX #0 tab 09/02/20 metoprolol tartrate 25 mg PO BID #0 tab 09/02/20 oxycodone 5 mg PO Q4H PRN PRN 1 Days #6 tab 09/02/20 Hospital Course Operations None Procedures Thoracentesis (800 cc of exudative fluid off left side) Summary of Care Provided Minutes Spent on Discharge: 45 Hospital Course: Ms. Umanzor is a 70-year-old white female who presented to the e mergency department at [facility] on 08/29/2020 with the complaint of palpitations. Per documentation of visiting nurse checked on her and she was found to be in atrial fibrillation. She also had lower extremity edema and had been having mechanical falls. She had noted bruises on her bilateral lower extremity with the left greater than the right. After admission she was found to be in sinus rhythm. A chest x-ray was performed and found a large left pleural effusion which was new. She admitted to a 50 pound weight loss in 5 months and reported a history of smoking but that she last smoked 50 years prior to admission. A CTA was done in the emergency department that showed a large left pleural effusion with compressive atelectasis, a large amount of ascites, multiple bilateral pulmonary emboli, and anterior mediastinal mass that was concerning for metastatic disease versus lymphadenopathy. Upon review of recent diagnostic studies a right upper quadrant ultrasound was found to be done on August 20, 2020 that revealed an irregular contour of the liver that was suggestive of cirrhosis. She had no further work-up since that time. She was placed on broad-spectrum antibiotics, heparin drip for her pulmonary emboli, and admitted to the intensive care unit. She was evaluated by cardiology for a troponin elevation and they felt that this was most likely related to her sinus tachycardia/atrial fibrillation and recommended a 2D echo which was performed and showed an EF of 60% moderate left atrial enlargement, right ventricular systolic pressure of 44 mmHg and was otherwise normal. A diagnostic thoracentesis was performed and per lights criteria was suggestive of exudative effusion. Cytology and pathology were still pending at discharge. After her thoracentesis she was able to be removed from supplemental oxygen. A follow-up CT of her chest was performed and showed mild to moderate bilateral pleural effusions that remained status post thoracentesis, well demarcated nodules, and a pleural nodule on the left chest wall as well as marked ascites. Given her abnormal ultrasound of the liver and her presentation a CT of her abdomen was performed on 09/02/2020 and showed multiple hypodense lesions in both lobes of the liver that were consistent with metastasis, marked ascites, bilateral necrotic adnexal lesions with probable right sided peritoneal deposits. I discussed with the patient that she had at this time a cancer of unknown origin and we are waiting for the cytology from her thoracentesis to resolve before proceeding with any further biopsies as that cytology may give us a diagnosis. She is understanding that she may need to undergo further biopsy if the fluid is unrevealing. I have converted her from heparin drip to Lovenox 1 mg/kg twice daily for treatment of her bilateral pulmonary emboli which are likely related to her cancer diagnosis. A CEA, CA 19-9, and a CA-125 were ordered and are pending at discharge. She is to follow-up in 1 to 2 weeks with pulmonary to review the results of her studies and ascertain whether further biopsy will be needed. She was also discharged on Lasix 40 mg twice daily and metoprolol 25 mg twice daily. She is discharged in stable condition and requiring no supplemental oxygen. At this time her performance status is poor and she realizes the importance of continued therapy to improve her performance status so she will be a candidate for chemotherapy if recommended. Physical Exam Const alert, oriented x3 and no apparent distress Constitutional Narrative: Older white female, lying in bed, appears comfortable, on room air, watching television, nontoxic General Appearance: cooperative and comfortable HEENT normocephalic and head/scalp atraumatic Eyes EOMs intact bilaterally and conjunctivae normal Neck supple Neck Narrative: Trachea midline Resp normal respiratory effort, no retractions and no use of accessory muscles Resp Narrative: Diminished left base but otherwise clear, currently on room air Auscultation: Negative for crackles, rales, rhonchi or wheezes Cardio regular rhythm, S1 normal heart sound, S2 normal heart sound, no murmurs, no rub, no gallops, no clicks and no JVD Cardio Narrative: Mild tachycardia GI normal to inspection, nondistended, normoactive bowel sounds, soft to palpation, non-tender and non-distended GI Narrative: Mild positive fluid wave, no severe distention Extremity Extremity Narrative: Trace bilateral lower extremity edema, scattered ecchymosis from fall, no cyanosis or clubbing Skin skin turgor normal and no jaundice Skin Narrative: Ecchymosis and scratches left lower extremity in various stages of healing Neuro oriented x3, CN's II-XII intact bilaterally, moves all extremities and no focal motor deficits Neuro Narrative: Marked generalized weakness but no focal deficits Sensorium / Orientation: awake, alert, oriented to person, oriented to place and oriented to time Speech: speech normal Psych affect normal Psych Narrative: Very pleasant Weight / BMI Weight Weight: 75.9 kg Body Mass Index (BMI) 30.6 ABG / Lab / Microbiology Data Result Diagrams: 09/02/20 05:52 09/02/20 05:52 Laboratory: Laboratory Results - last 24 hr 09/02/20 09/02/20 09/02/20 05:52 05:52 05:52 WBC 6.5 RBC 4.16 L Hgb 11.5 L Hct 36.8 L MCV 88.5 MCH 27.6 MCHC 31.3 L RDW Std Deviation 52.5 H RDW Coeff of Katie 16.5 H Plt Count 288 MPV 10.7 Immature Gran % (Auto) 1.200 H Neut % (Auto) 75.5 H Lymph % (Auto) 9.8 L [place] % (Auto) 12.9 H Eos % (Auto) 0.3 Baso % (Auto) 0.3 Absolute Neuts (auto) 4.9 Absolute Lymphs (auto) 0.64 L Nucleated RBC % 0 Sodium 138 Potassium 4.1 Chloride 100 Carbon Dioxide 33.0 H Anion Gap 5 BUN 15 Creatinine 0.84 Estim Creat Clear Calc 47.88 Est GFR (MDRD) Af Amer 86 Est GFR (MDRD) Non-Af 71 BUN/Creatinine Ratio 18.0 Glucose 107 H Calcium 8.7 Total Bilirubin 0.50 AST 38 H ALT 31 Alkaline Phosphatase 202 H Ammonia 18.0 Total Protein 6.0 L Albumin 2.1 L Globulin 3.9 Albumin/Globulin Ratio 0.5 L Microbiology: Microbiology 09/02/20 11:03 SARS-CoV-2 Antigen (Rapid) - Final Mucosa - Nose Microbiology 09/02/20 11:03 Mucosa - Nose SARS-CoV-2 Antigen (Rapid) - Final 08/29/20 18:40 Blood Culture (Wb) - No Site/Description Given Blood Culture - Preliminary No growth in 48 hours. 08/29/20 15:35 Blood Culture (Wb) - Anticubital Right Blood Culture - Preliminary No growth in 48 hours. 08/30/20 06:15 Urine, Clean Catch Legionella Antigen - Final 08/30/20 06:15 Urine, Clean Catch Streptococcus pneumoniae Antigen (M - Final 08/29/20 13:25 Mucosa - Nose SARS-CoV-2 Antigen (Rapid) - Final Radiography Diagnostic Testing: Radiology Impression Abdomen/Pelvis CT 09/02/20 06:00 IMPRESSION: Liver metastases, marked ascites. Necrotic adnexal lesions with peritoneal deposits in the right side of the abdomen. Electronically Signed: Lynne Morrow, at 10:53 EDT Tel , Service support , D/C Instructions Discharge Diet: 2000 mg Sodium Diet Discharge Activity: Return to Normal Activity Meaningful Use Info Meaningful Use Diagnoses (Choose all that apply): None applicable Discharge Plan Admission Admit Date/Time: 08/29/20 14:10 Primary Reason for Your Visit: Pleural Effusion Attending Provider: Holly Mora Primary Care Provider: Tiago Alonzo Consulting Providers: Sundeep Lawton ; Db Vaughan ; Tj Dominguez ; Ginny Acosta BOILER CONTROL TECHNICIAN Instructions Patient Instructions: Thoracentesis Dc Discharge Orders/Prescriptions Prescriptions: New acetaminophen [Tylenol] 325 mg Tablet 650 mg PO Q4H PRN PRN (Reason: Pain 1-10 Or Fever) Qty: 0 RF: 0 furosemide 40 mg Tablet 40 mg PO BIDLX Qty: 0 RF: 0 albuterol sulfate 2.5 mg /3 mL (0.083 %) Solution For Nebulization 2.5 mg inhalation Q2H PRN PRN (Reason: SOB/Wheezing) Qty: 0 RF: 0 oxycodone 5 mg Tablet 5 mg PO Q4H PRN PRN (Reason: Pain Score 4-5) 1 Days Qty: 6 RF: 0 enoxaparin 80 mg/0.8 mL Syringe 80 mg subcut Q12 Qty: 0 RF: 0 metoprolol tartrate 25 mg Tablet 25 mg PO BID Qty: 0 RF: 0 Continued multivitamin Tablet 1 tab PO DAILY RF: 0 Discontinued meloxicam 15 mg Tablet 15 mg PO DAILY RF: 0 Referrals / Follow Up: Db Vaughan MD [STAFF PHYSICIAN] - In 1 Week (Follow-up with nurse sherri busby in 1 to 2 weeks ) Tiago Alonzo MD [Primary Care Provider] - Disposition Disposition (needs filled in before D/C Order can be placed): [facility] Charges/Coding Visit Charges Inpatient E&M: 90784 SNF Disch >30 Min
--- NOTE | 2020-09-02 12:42 | TREXTCAR_ITS ---
Diet 08/29/20 14:11 Diet: Cardiac - Heart Healthy Food consistency:: Regular Liquid Consistency:: Regular/Thin Dietary Modifications:: Sodium Restricted Routine Orders/Code Status Enema Frequency: Daily PRN Suppository Frequency: Daily PRN O2 Frequency: PRN Keep PO Greater than or Equal to (%): 92 Routine Lab Work: CBC (Weekly) and BMP (Weekly) Code Status: Full Code Wound(s) sacrum: Wound Type: Pressure Injury left mid back: Wound Type: Puncture Therapies Weight Bearing: Full weight bearing Physical Therapy: Eval and Treat Occupational Therapy: Eval and Treat Problem/Diagnosis (1) Pleural effusion: Status: Acute Allergies/Procedures Done in Hospital Allergies No Known Allergies Allergy (Verified 08/29/20 10:45) Procedures: Thoracentesis Type of Care/Length of Stay Estimated LOS: Convalescent Care Less Than 30 days Type of Care Needed: Skilled Rehab Potential: Fair Prognosis: Poor Additional Orders/Day of Discharge Day of Discharge: 09/02/20 Dietary and Speech Recommendations Dietitian Recommendations/Changes: Cardiac; sodium-restricted diet; FR as needed. Will offer ONS as needed if intake fails at meals. Will d/c ensure enlive w/ medpass--pt refusing at this time. Wt stable and PO adequate. Discharge Plan Admission Admit Date/Time: 08/29/20 14:10 Primary Reason for Your Visit: Pleural Effusion Attending Provider: Holly Mora Primary Care Provider: Tiago Alonzo Consulting Providers: Sundeep Lawton ; Db Vaughan ; Tj Dominguez ; Ginny Acosta DIAGNOSTIC MEDICAL SONOGRAPHER Instructions Patient Instructions: Thoracentesis Dc Discharge Orders/Prescriptions Prescriptions: New acetaminophen [Tylenol] 325 mg Tablet 650 mg PO Q4H PRN PRN (Reason: Pain 1-10 Or Fever) Qty: 0 RF: 0 furosemide 40 mg Tablet 40 mg PO BIDLX Qty: 0 RF: 0 albuterol sulfate 2.5 mg /3 mL (0.083 %) Solution For Nebulization 2.5 mg inhalation Q2H PRN PRN (Reason: SOB/Wheezing) Qty: 0 RF: 0 oxycodone 5 mg Tablet 5 mg PO Q4H PRN PRN (Reason: Pain Score 4-5) 1 Days Qty: 6 RF: 0 enoxaparin 80 mg/0.8 mL Syringe 80 mg subcut Q12 Qty: 0 RF: 0 metoprolol tartrate 25 mg Tablet 25 mg PO BID Qty: 0 RF: 0 Continued multivitamin Tablet 1 tab PO DAILY RF: 0 Discontinued meloxicam 15 mg Tablet 15 mg PO DAILY RF: 0 Referrals / Follow Up: Db Vaughan MD [STAFF PHYSICIAN] - In 1 Week (Follow-up with nurse practitioner in 1 to 2 weeks ) Tiago Alonzo MD [Primary Care Provider] - Disposition Disposition (needs filled in before D/C Order can be placed): [facility]
--- NOTE | 2020-09-02 14:40 | CASEMGMT ---
ALESSANDRA faxed orders to [facility]. Completed convalescent on HENS. ALESSANDRA arranged for patient to get picked up at 1530 via [employer] van. ALESSANDRA notified RN, hot metal mixer operator, patient, Alayna and left a message for patient's niece. Plan: d/c to [facility] under skilled level of care on a convalescent stay. [facility] transported patient via [facility] van. Mandi JEFF
--- NOTE | 2020-09-02 15:08 | PHA.DC.MR ---
Pharmacy Service has performed discharge medication reconciliation for this patient. The patient's discharge medication list was reviewed for discrepancies and discrepancies were resolved. Home Medications multivitamin 1 tab PO DAILY 08/29/20 acetaminophen [Tylenol] 650 mg PO Q4H PRN PRN #0 tab 09/02/20 albuterol sulfate 2.5 mg INHALATION Q2H PRN PRN #0 ml 09/02/20 enoxaparin 80 mg SUBCUT Q12 #0 ml 09/02/20 furosemide 40 mg PO BIDLX #0 tab 09/02/20 metoprolol tartrate 25 mg PO BID #0 tab 09/02/20 oxycodone 5 mg PO Q4H PRN PRN 1 Days #6 tab 09/02/20
[2020-09-03 12:11] LABS: Pathologist Comment/Body Fluid Reviewed
[2020-09-03 14:24] LABS: Carbohydrate AG 19-9 51 U/mL (0-35); Carcinoembryonic Antigen 2.1 ng/mL (0.0-4.7)
== END 2020-09-02 15:29 | disposition skilled nursing facility (03) | DRG 754 ==
LOC: ED 11:34 → PCU 17:55
PROVIDERS: Admitting Provider Student in an Organized Health Care Education/Training Program; Emergency Provider Emergency Medicine; PCP Family Medicine; Visit Provider Internal Medicine
DX: C56.9 Malignant neoplasm of unspecified ovary (principal); I26.99 Other pulmonary embolism without acute cor pulmonale; I21.A1 Myocardial infarction type 2; R18.8 Other ascites; C78.7 Secondary malignant neoplasm of liver and intrahepatic bile duct; C78.1 Secondary malignant neoplasm of mediastinum; J91.0 Malignant pleural effusion; C80.1 Malignant (primary) neoplasm, unspecified; K74.60 Unspecified cirrhosis of liver; R09.02 Hypoxemia; E87.6 Hypokalemia; E83.42 Hypomagnesemia; I10 Essential (primary) hypertension; I27.21 Secondary pulmonary arterial hypertension; Z20.822 Contact with and (suspected) exposure to COVID-19; M17.12 Unilateral primary osteoarthritis, left knee; K21.9 Gastro-esophageal reflux disease without esophagitis; R29.6 Repeated falls; S83.92XA Sprain of unspecified site of left knee, initial encounter; S80.12XA Contusion of left lower leg, initial encounter; S80.11XA Contusion of right lower leg, initial encounter; W06.XXXA Fall from bed, initial encounter; Y93.9 Activity, unspecified; Y92.003 Bedroom of unspecified non-institutional (private) residence as the place of occurrence of the external cause; Y99.9 Unspecified external cause status; Z79.1 Long term (current) use of non-steroidal anti-inflammatories (NSAID); Z87.891 Personal history of nicotine dependence
CPT/HCPCS: 32555; 36415; 71045; 71250; 71260; 73560; 73590; 74177; 80048; 80053; 80076; 82140; 82378; 82945; 83615; 83735; 83880; 84157; 84484; 85025; 85610; 85730; 86301; 86304; 87040; 87426; 87449; 88108; 88305; 88313; 88341; 88342; 89050; 93005; 93306; 97162; 97165; 97530; 97535; 97802; 99284; 99285; J7040; Q9967; A4216; J1940